=== PATIENT | male | born 1945 | race Caucasian/White ===

== ENCOUNTER 2023-01-03 13:27 | Observation (INO) ==
--- NOTE | 2023-01-03 13:38 | Emergency Department Note ---
History of Present Illness General Chief complaint: Illness Stated complaint: DIZZINESS,UNSTEADY,LEANING OVER,MEDEXP REF Time Seen by Provider: 01/03/23 13:37 History of Present Illness This 77-year-old male patient presents to the emergency department for evaluation of dizziness, chills, and shaking. He went to [facility] first, but they were unable to do a chest x-ray and he was referred to the emergency d [facility]. He started with chills and unsteadiness on his feet last night. Has also been coughing the past couple weeks and he is a smoker. His urine was also very dark and orange this morning and his girlfriend was concerned for UTI. [facility] was also concerned about possible pneumonia. No abdominal pain, nausea, or vomiting. No chest pain. Mild SOB at times. Used his inhaler this morning with minimal improvement. No measured fevers, but had the chills like he might have been breaking a fever. He states that he gets "cold spells" about once a year that usually just resolves on his own. No headache, vision changes, or changes in his personality. Just seems dizzy with getting up from sitting and trying to walk right away. Not on any blood thinners. Home Medications Medication Instructions Recorded Confirmed Type acetaminophen 650 mg 1,300 mg PO TID 06/15/20 01/03/23 History tablet,extended release aspirin 81 mg tablet,delayed 81 mg PO QAM 06/15/20 01/03/23 History release fenofibrate micronized 200 mg 200 mg PO QAM 06/15/20 01/03/23 History capsule simvastatin 40 mg tablet 40 mg PO HS 06/15/20 01/03/23 History melatonin 2.5 mg/10 mL oral liquid 5 mg PO HS PRN Sleep 10/13/20 01/03/23 History albuterol sulfate 90 mcg/actuation 2 puff inhalation Q6H PRN 04/28/22 01/03/23 History aerosol inhaler Shortness Of Breath Or Wheezing bupropion HCl 150 mg tablet,12 hr 150 mg PO BID 04/28/22 01/03/23 History sustained-release (Wellbutrin SR) esomeprazole magnesium 20 mg 40 mg PO DAILY 04/28/22 01/03/23 History capsule,delayed release (Nexium) fexofenadine 180 mg tablet 180 mg PO DAILY 04/28/22 01/03/23 History (Gissell Allergy) meloxicam 7.5 mg tablet 15 mg PO DAILY 04/28/22 01/03/23 History tamsulosin 0.4 mg capsule (Flomax) 0.4 mg PO DAILY 04/28/22 01/03/23 History ciclopirox 0.77 % topical cream 1 applic topical BID PRN Skin 09/13/22 01/03/23 History Irritation valsartan 160 mg tablet 160 mg PO DAILY 09/13/22 01/03/23 History montelukast 10 mg tablet 10 mg PO DAILY #30 tabs 10/16/22 01/03/23 Rx famotidine 20 mg tablet (Acid 20 mg PO HS 01/03/23 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/23 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)) metoprolol succinate 25 mg 25 mg PO QAM 01/03/23 01/03/23 History tablet,extended release 24 hr Allergies Allergy/AdvReac Type Severity Reaction Status Date / Time No Known Allergies Allergy Verified 01/03/23 15:21 Past Med/Surg History Medical History Abnormal CT scan, chest Allergic rhinitis Chronic back pain Hyperlipidemia Hypertension Osteoarthritis Tobacco abuse counseling Surgical History History of bilateral cataract extraction History of colonoscopy Family History Mother Hypertension Cancer Heart disease Sister Hypertension Cancer Heart disease Other No family history of adverse response to anesthesia Social History Smoking Status: Current every day smoker Tobacco Type: Cigarettes Age Started Using Tobacco: 18; packs per day: 1; Cigarettes Per Day: 20X 56 YEARS; Second Hand Exposure: Yes; Hx Alcohol Use: No Hx Substance Use: No Preferred Language: Urdu Communication Ability: Effective 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 Physical Exam Vital Signs Vital Signs - 24 hr 01/03/23 13:33 01/03/23 13:46 01/03/23 14:19 Temperature 36.9 C Temperature Source Temporal Artery Scan Pulse Rate 88 83 Pulse Rate [Apical] 81 Pulse Rate from SpO2 Sensor Pulse Rhythm [Apical] Regular Pulse Strength [Apical] Normal Respiratory Rate 18 18 Respiratory Effort / Characteristics Non-Labored Spontaneous Non-Labored Spontaneous Respiratory Depth Normal Normal Respiratory Pattern Regular Regular Blood Pressure 120/68 Blood Pressure [Right Arm] 105/54 L Blood Pressure Mean 85 Blood Pressure Mean [Right Arm] 71 Blood Pressure Position [Right Arm] Sitting Pulse Oximetry 96 98 Oxygen Delivery Method Room Air Room Air Sepsis Recent Fever Within 48 Hours No Sepsis New/Unexplained Change in Mental Status No Sepsis Action Taken by Nursing No Action Required 01/03/23 14:19 01/03/23 14:00 01/03/23 14:30 Temperature Temperature Source Pulse Rate 87 77 Pulse Rate [Apical] Pulse Rate from SpO2 Sensor 79 76 Pulse Rhythm [Apical] Pulse Strength [Apical] Respiratory Rate 16 21 Respiratory Effort / Characteristics Respiratory Depth Respiratory Pattern Blood Pressure 105/54 L 110/58 L Blood Pressure [Right Arm] Blood Pressure Mean 71 75 Blood Pressure Mean [Right Arm] Blood Pressure Position [Right Arm] Pulse Oximetry 98 94 96 Oxygen Delivery Method Room Air Sepsis Recent Fever Within 48 Hours Sepsis New/Unexplained Change in Mental Status Sepsis Action Taken by Nursing 01/03/23 14:40 01/03/23 14:50 01/03/23 15:16 Temperature Temperature Source Pulse Rate 79 Pulse Rate [Apical] Pulse Rate from SpO2 Sensor 86 82 Pulse Rhythm [Apical] Pulse Strength [Apical] Respiratory Rate 18 Respiratory Effort / Characteristics Respiratory Depth Respiratory Pattern Blood Pressure 120/66 Blood Pressure [Right Arm] Blood Pressure Mean 84 Blood Pressure Mean [Right Arm] Blood Pressure Position [Right Arm] Pulse Oximetry 97 96 95 Oxygen Delivery Method Sepsis Recent Fever Within 48 Hours Sepsis New/Unexplained Change in Mental Status Sepsis Action Taken by Nursing 01/03/23 15:30 01/03/23 15:37 01/03/23 15:50 Temperature Temperature Source Pulse Rate 78 82 Pulse Rate [Apical] Pulse Rate from SpO2 Sensor 81 Pulse Rhythm [Apical] Pulse Strength [Apical] Respiratory Rate 20 21 Respiratory Effort / Characteristics Respiratory Depth Respiratory Pattern Blood Pressure 122/58 L 109/58 L Blood Pressure [Right Arm] Blood Pressure Mean 79 75 Blood Pressure Mean [Right Arm] Blood Pressure Position [Right Arm] Pulse Oximetry 96 97 97 Oxygen Delivery Method Sepsis Recent Fever Within 48 Hours Sepsis New/Unexplained Change in Mental Status Sepsis Action Taken by Nursing 01/03/23 16:00 01/03/23 16:10 Temperature Temperature Source Pulse Rate 79 87 Pulse Rate [Apical] Pulse Rate from SpO2 Sensor 78 85 Pulse Rhythm [Apical] Pulse Strength [Apical] Respiratory Rate 20 16 Respiratory Effort / Characteristics Respiratory Depth Respiratory Pattern Blood Pressure 119/62 Blood Pressure [Right Arm] Blood Pressure Mean 81 Blood Pressure Mean [Right Arm] Blood Pressure Position [Right Arm] Pulse Oximetry 96 98 Oxygen Delivery Method Sepsis Recent Fever Within 48 Hours Sepsis New/Unexplained Change in Mental Status Sepsis Action Taken by Nursing Vital Signs: Vitals are noted on the nurse's note and reviewed by myself. GENERAL: 77 year old male, in no acute distress, non-diaphoretic, well-developed well-nourished. SKIN: Capillary reflex less than 2 seconds. HEAD: Normocephalic atraumatic. EARS: External auditory canals clear, tympanic membrane pearly lai without erythema or effusion. No tragus tenderness. No mastoid tenderness. EYES: Pupils equal round and reactive to light and accommodation. Conjunctivae without injection, sclerae without icterus. Extraocular movements intact. NOSE: Patent, turbinates inflamed with No discharge. No sinus tenderness. MOUTH: Mucous membranes moist. Airway patent, uvula midline. Tonsils are not enlarged and not erythematous without exudate. Pharynx No postnasal drip. No evidence for peritonsillar abscess. NECK: Supple without nuchal rigidity. No lymphadenopathy. HEART: Regular rate and rhythm without murmurs gallops or rubs. LUNGS: Clear to auscultation bilaterally with scattered wheezes, but no rales or rhonchi. No accessory muscle use or retractions. ABDOMEN: Positive bowel sounds x 4. Normal tympanic percussion. Soft, nontender, without masses or organomegaly. NEURO: Patient was alert and oriented to person place and time. Normal mental status exam. Cerebellar function intact. No focal neurological defects. Course Administered Medications Acetaminophen (Acetaminophen 325 Mg Tab) 650 mg PO Q4H PRN PRN Reason: pain/fever Stop: 02/02/23 17:55 Last Admin: 01/03/23 22:10 Dose: 650 mg Documented By: EW Albuterol (Albut/Ipratrop 3mg/0.5mg Neb 3 Ml Vial) 3 ml NEB QIDR DANDRE; Protocol Stop: 02/02/23 18:59 Last Admin: 01/03/23 19:37 Dose: 3 ml Documented By: CMF Bupropion HCl (Bupropion Sr 150 Mg Tabcr) 150 mg PO BID DANDRE Stop: 02/02/23 20:59 Last Admin: 01/03/23 20:13 Dose: 150 mg Documented By: EW Famotidine (Famotidine 20 Mg Tab) 20 mg PO HS DANDRE Stop: 02/02/23 20:59 Last Admin: 01/03/23 20:11 Dose: 20 mg Documented By: EW Guaifenesin (Guaifenesin 600 Mg Tabcr) 1,200 mg PO Q12 DANDRE Stop: 02/02/23 20:59 Last Admin: 01/03/23 20:13 Dose: 1,200 mg Documented By: EW Methylprednisolone 40 mg/ (Syringe) 0.64 mls @ 1.5 mls/min IV Q8H DANDRE Stop: 02/02/23 18:59 Last Admin: 01/03/23 18:41 Dose: 1.5 mls/min Documented By: CAW Melatonin (Melatonin 3 Mg Tab) 6 mg PO HS PRN PRN Reason: Sleep Stop: 02/02/23 17:55 Last Admin: 01/03/23 22:10 Dose: 6 mg Documented By: EW Metoprolol Succinate (Metoprolol Succ 25mg Ext Rel Tab) 25 mg PO HS [facility] Stop: 02/02/23 21:29 Last Admin: 01/03/23 22:11 Dose: 25 mg Documented By: EW Miscellaneous (Fenofibrate Micronized 200 Mg - Order Awaiting Action) 1 each N/A QS DANDRE Stop: 02/03/23 00:00 Last Admin: 01/03/23 20:14 Dose: Not Given Documented By: EW Simvastatin (Simvastatin 40 Mg Tab) 40 mg PO HS [facility] Stop: 02/02/23 20:59 Last Admin: 01/03/23 20:11 Dose: 40 mg Documented By: EW Discontinued Medications Albuterol (Albut/Ipratrop 3mg/0.5mg Neb 3 Ml Vial) 3 ml NEB NOW STA; Protocol Stop: 01/03/23 13:53 Last Admin: 01/03/23 14:18 Dose: 3 ml Documented By: ERINN Sodium Chloride (Nss 1000ml) 1,000 mls @ 999 mls/hr IV .Q1H1M DANDRE Stop: 01/03/23 15:00 Last Infusion: 01/03/23 15:34 Dose: 0 mls/hr Documented By: Admin: 01/03/23 14:15 Dose: 999 mls/hr Documented By: ERINN Sodium Chloride (Nss 1000ml) 1,000 mls @ 999 mls/hr IV .Q1H1M ONE Stop: 01/03/23 16:00 Last Infusion: 01/03/23 16:02 Dose: 0 mls/hr Documented By: Admin: 01/03/23 15:05 Dose: 999 mls/hr Documented By: ERINN Ceftriaxone Sodium (Rocephin) 2,000 mg in 70 mls @ 140 mls/hr IV NOW STA Stop: 01/03/23 15:31 Last Infusion: 01/03/23 16:02 Dose: 0 mls/hr Documented By: Admin: 01/03/23 15:34 Dose: 140 mls/hr Documented By: ERINN Azithromycin 500 mg/ Dextrose 255 mls @ 127.5 mls/hr IV NOW STA Stop: 01/03/23 17:01 Last Infusion: 01/03/23 18:33 Dose: 0 mls/hr Documented By: Admin: 01/03/23 16:04 Dose: 127.5 mls/hr Documented By: ERINN Medical Decision Making Differential Diagnosis Differential diagnosis includes benign positional vertigo, dehydration, pneumonia, UTI, COVID, RSV, influenza, MN, PE, hypovolemia, anemia, tumor, infection, hypoglycemia, electrolyte abnormalities, cardiac sources, intracerebral event, toxicologic, neurologic, as well as other pathologies. Laboratory Data Attestation: I reviewed the patient's lab results. 01/03/23 14:06 01/03/23 14:06 Lab Results 01/03/23 01/03/23 01/03/23 Range/Units 14:06 14:06 14:06 WBC 19.29 H (4.8-10.8) K/ul RBC 4.35 L (4.70-6.10) M/uL Hgb 13.8 L (14.0-18.0) g/dl Hct 39.3 L (42.0-52.0) % MCV 90.3 (80.0-100.0) fL MCH 31.7 (25.0-34.0) pg MCHC 35.1 (32.0-36.0) g/dL RDW Std Deviation 46.2 (36.4-46.3) fL RDW Coeff of Mary 14.0 (11.5-14.5) % Plt Count 207 (130-400) K/uL MPV 9.2 L (9.4-12.4) fL Immature Gran % (Auto) 0.4 % Neut % (Auto) 85.8 % Lymph % (Auto) 5.9 % [place] % (Auto) 7.3 % Eos % (Auto) 0.1 % Baso % (Auto) 0.5 % Neut # (Auto) 16.56 H (1.40-6.50) K/uL Lymph # (Auto) 1.14 L (1.2-3.4) K/uL [place]on # (Auto) 1.40 H (0.11-0.59) K/uL Eos # (Auto) 0.01 (0-0.50) K/uL Baso # (Auto) 0.10 (0-0.2) K/uL Immature Gran # (Auto) 0.08 (0.01-0.20) K/uL PT (9.0-12.0) Seconds INR (0.9-1.1) APTT (21.0-31.0) Seconds PTT Ratio Sodium 139 (136-145) mmol/L Potassium 4.4 (3.5-5.1) mmol/L Chloride 107 (98-107) mmol/L Carbon Dioxide 25 (21-32) mmol/L Anion Gap 7 (3-11) BUN 29 H (6-23) mg/dl Creatinine 1.10 (0.6-1.4) mg/dl Est Cr Clr Drug Dosing 63.1 ml/min Est GFR ( Amer) 75.7 ml/min Est GFR (Non-Af Amer) 65.3 ml/min BUN/Creatinine Ratio 26.4 H (10-20) Glucose 89 (70-99(Fasting)) mg/dl Lactate (0.4-2.0) mmol/L Calcium 9.1 (8.6-10.3) mg/dl Magnesium 1.8 (1.7-2.4) mg/dl Total Bilirubin 1.0 (0.2-1.0) mg/dl AST 16 (13-39) U/L ALT 13 (7-52) U/L Alkaline Phosphatase 42 (34-104) U/L Troponin I High Sens 5.8 (0-20) pg/ml Total Protein 6.8 (6.0-8.3) gm/dl Albumin 4.2 (3.4-5.0) gm/dl Globulin 2.6 (2.5-4.0) gm/dl Albumin/Globulin Ratio 1.6 (0.9-2) TSH 1.003 (0.300-4.500) uIu/ml Urine Color Urine Appearance (Clear) Urine pH (4.5-7.5) Ur Specific [place] (1.000-1.030) Urine Protein (Negative) Urine Glucose (UA) (Negative) Urine Ketones (Negative) Urine Blood (Negative) Urine Nitrite (Negative) Urine Bilirubin (Negative) Urine Urobilinogen (Negative) Ur Leukocyte Esterase (Negative) Urine WBC (Auto) (0-5) /hpf Urine RBC (Auto) (0-4) /hpf U Hyaline Cast (Auto) (0-5) /lpf U Epithel Cells (Auto) (0-5) /lpf Urine Bacteria (Auto) (Negative) SARS-CoV-2 (PCR) (Negative) Influenza Type A (PCR) (Neg) Influenza Type B (PCR) (Neg) RSV (RT-PCR) (Neg) 01/03/23 01/03/23 01/03/23 Range/Units 14:06 14:06 14:51 WBC (4.8-10.8) K/ul RBC (4.70-6.10) M/uL Hgb (14.0-18.0) g/dl Hct (42.0-52.0) % MCV (80.0-100.0) fL MCH (25.0-34.0) pg MCHC (32.0-36.0) g/dL RDW Std Deviation (36.4-46.3) fL RDW Coeff of Mary (11.5-14.5) % Plt Count (130-400) K/uL MPV (9.4-12.4) fL Immature Gran % (Auto) % Neut % (Auto) % Lymph % (Auto) % Weston % (Auto) % Eos % (Auto) % Baso % (Auto) % Neut # (Auto) (1.40-6.50) K/uL Lymph # (Auto) (1.2-3.4) K/uL [place]on # (Auto) (0.11-0.59) K/uL Eos # (Auto) (0-0.50) K/uL Baso # (Auto) (0-0.2) K/uL Immature Gran # (Auto) (0.01-0.20) K/uL PT 11.1 (9.0-12.0) Seconds INR 1.0 (0.9-1.1) APTT 25.2 (21.0-31.0) Seconds PTT Ratio 0.9 Sodium (136-145) mmol/L Potassium (3.5-5.1) mmol/L Chloride (98-107) mmol/L Carbon Dioxide (21-32) mmol/L Anion Gap (3-11) BUN (6-23) mg/dl Creatinine (0.6-1.4) mg/dl Est Cr Clr Drug Dosing ml/min Est GFR ( Amer) ml/min Est GFR (Non-Af Amer) ml/min BUN/Creatinine Ratio (10-20) Glucose (70-99(Fasting)) mg/dl Lactate (0.4-2.0) mmol/L Calcium (8.6-10.3) mg/dl Magnesium (1.7-2.4) mg/dl Total Bilirubin (0.2-1.0) mg/dl AST (13-39) U/L ALT (7-52) U/L Alkaline Phosphatase (34-104) U/L Troponin I High Sens (0-20) pg/ml Total Protein (6.0-8.3) gm/dl Albumin (3.4-5.0) gm/dl Globulin (2.5-4.0) gm/dl Albumin/Globulin Ratio (0.9-2) TSH (0.300-4.500) uIu/ml Urine Color [place] Urine Appearance Clear (Clear) Urine pH 6.0 (4.5-7.5) Ur Specific Ballinger 1.030 (1.000-1.030) Urine Protein Negative (Negative) Urine Glucose (UA) Negative (Negative) Urine Ketones Trace H (Negative) Urine Blood Negative (Negative) Urine Nitrite Negative (Negative) Urine Bilirubin Negative (Negative) Urine Urobilinogen Negative (Negative) Ur Leukocyte Esterase Trace H (Negative) Urine WBC (Auto) 1-5 (0-5) /hpf Urine RBC (Auto) 0-4 (0-4) /hpf U Hyaline Cast (Auto) 5-10 H (0-5) /lpf U Epithel Cells (Auto) 10-20 H (0-5) /lpf Urine Bacteria (Auto) Negative (Negative) SARS-CoV-2 (PCR) NEGATIVE (Negative) Influenza Type A (PCR) Negative (Neg) Influenza Type B (PCR) Negative (Neg) RSV (RT-PCR) Negative (Neg) 01/03/23 Range/Units 15:14 WBC (4.8-10.8) K/ul RBC (4.70-6.10) M/uL Hgb (14.0-18.0) g/dl Hct (42.0-52.0) % MCV (80.0-100.0) fL MCH (25.0-34.0) pg MCHC (32.0-36.0) g/dL RDW Std Deviation (36.4-46.3) fL RDW Coeff of Mary (11.5-14.5) % Plt Count (130-400) K/uL MPV (9.4-12.4) fL Immature Gran % (Auto) % Neut % (Auto) % Lymph % (Auto) % Weston % (Auto) % Eos % (Auto) % Baso % (Auto) % Neut # (Auto) (1.40-6.50) K/uL Lymph # (Auto) (1.2-3.4) K/uL [place]on # (Auto) (0.11-0.59) K/uL Eos # (Auto) (0-0.50) K/uL Baso # (Auto) (0-0.2) K/uL Immature Gran # (Auto) (0.01-0.20) K/uL PT (9.0-12.0) Seconds INR (0.9-1.1) APTT (21.0-31.0) Seconds PTT Ratio Sodium (136-145) mmol/L Potassium (3.5-5.1) mmol/L Chloride (98-107) mmol/L Carbon Dioxide (21-32) mmol/L Anion Gap (3-11) BUN (6-23) mg/dl Creatinine (0.6-1.4) mg/dl Est Cr Clr Drug Dosing ml/min Est GFR ( Amer) ml/min Est GFR (Non-Af Amer) ml/min BUN/Creatinine Ratio (10-20) Glucose (70-99(Fasting)) mg/dl Lactate 1.5 (0.4-2.0) mmol/L Calcium (8.6-10.3) mg/dl Magnesium (1.7-2.4) mg/dl Total Bilirubin (0.2-1.0) mg/dl AST (13-39) U/L ALT (7-52) U/L Alkaline Phosphatase (34-104) U/L Troponin I High Sens (0-20) pg/ml Total Protein (6.0-8.3) gm/dl Albumin (3.4-5.0) gm/dl Globulin (2.5-4.0) gm/dl Albumin/Globulin Ratio (0.9-2) TSH (0.300-4.500) uIu/ml Urine Color Urine Appearance (Clear) Urine pH (4.5-7.5) Ur Specific Ballinger (1.000-1.030) Urine Protein (Negative) Urine Glucose (UA) (Negative) Urine Ketones (Negative) Urine Blood (Negative) Urine Nitrite (Negative) Urine Bilirubin (Negative) Urine Urobilinogen (Negative) Ur Leukocyte Esterase (Negative) Urine WBC (Auto) (0-5) /hpf Urine RBC (Auto) (0-4) /hpf U Hyaline Cast (Auto) (0-5) /lpf U Epithel Cells (Auto) (0-5) /lpf Urine Bacteria (Auto) (Negative) SARS-CoV-2 (PCR) (Negative) Influenza Type A (PCR) (Neg) Influenza Type B (PCR) (Neg) RSV (RT-PCR) (Neg) Imaging Data Radiologist's Impression: Chest X-Ray 01/03/23 13:53 SINGLE VIEW CHEST CLINICAL HISTORY: Dyspnea. Dizziness. FINDINGS: An AP, portable, upright chest radiograph is compared to study dated 05/28/2018 and correlated with chest CT dated 03/29/2022. The heart is enlarged not ing atherosclerotic calcification of the thoracic aorta. The pulmonary vasculature is noncongested. Emphysema and chronic interstitial thickening is similar to previous. There is multifocal airspace consolidation throughout the right lung. Airspace consolidation is also seen at the left lung base. No large pleural effusion or pneumothorax is identified. The skeletal structures are osteopenic. The bony thorax is grossly intact. IMPRESSION: 1. Multifocal airspace consolidation is typical for pneumonia. Clinical correlation will be required and radiographic follow-up to resolution is recommended. 2. Cardiomegaly and mild emphysema. 3. No large pleural effusion is seen. ACT 112: Negative or not required by law. Electronically signed by: Jd Maciel M.D. 01/03/2023 2:51 PM MDM Narrative I examined the patient. An IV lock was placed and labs were drawn. The patient was given a total of 2 L normal saline solution bolus. He was given a DuoNeb treatment with improvement initially, but then had slight return of wheezing prior to admission. Blood cultures were drawn and are pending. EKG was interpreted by myself as normal sinus rhythm at 84 bpm with no acute ST or T wave changes. White blood cell count elevated at 19.29. Hemoglobin slightly low at 13.8. Coags were normal. BUN elevated at 29, but creatinine normal at 1.10. CMP otherwise normal. Lactate normal at 1.5. Troponin normal. Magnesium normal. TSH normal. Urine with trace ketones, but no obvious evidence for UTI. COVID, flu, and RSV were negative. Chest x-ray was interpreted by myself and read by radiology as above and shows multifocal airspace consolidation typical for pneumonia. Cardiomegaly and mild emphysema. He was given Rocephin 2 g IV and Zithromax 500 mg IV. Based on Curb-65 score the patient meets criteria for admission. I had a meaningful discussion about this patient with Dr. Choudhury who agrees with my assessment and the treatment plan. I discussed the case with the on-call hospitalist who agreed to admit the patient for further evaluation and treatment. Please refer to their dictation for further details. The patient was admitted in stable condition. Impression & Plan Multifocal pneumonia, COPD (chronic obstructive pulmonary disease), Leukocytosis Discharge Plan Visit Data Chief Complaint: Illness Stated Complaint: DIZZINESS,UNSTEADY,LEANING OVER,MEDEXP REF ED Provider: Erlin Choudhury ED Midlevel Provider: Aaliyah Ardon Discharge Problem: Multifocal pneumonia, COPD (chronic obstructive pulmonary disease), Leukocytosis Patient Disposition: Admitted As Inpatient Condition: Good Discharge Instructions Interventions: ED Discharge Assessment Last Done: 01/03/23 17:32
[2023-01-03] MEDS ORDERED: ALBUT/IPRATROP 3MG/0.5MG NEB 3 ML VIAL NEB STA (13:52)
[2023-01-03] MEDS ORDERED: SODIUM CHLORIDE 0.9% 1000ML 1,000 ML IV SCH (14:00)
--- NOTE | 2023-01-03 14:52 | XRay Report ---
SINGLE VIEW CHEST CLINICAL HISTORY: Dyspnea. Dizziness. FINDINGS: An AP, portable, upright chest radiograph is compared to study dated 05/28/2018 and correlate d with chest CT dated 03/29/2022. The heart is enlarged noting atherosclerotic calcification of the tho racic aorta. The pulmonary vasculature is noncongested. Emphysema and chronic interstitial thickening is similar to previous. There is multifocal airspace consolidation throughout the right lung. Airspa ce consolidation is also seen at the left lung base. No large pleural effusion or pneumothorax is destin ntified. The skeletal structures are osteopenic. The bony thorax is grossly intact. IMPRESSION: 1. Multifocal airspace consolidation is typical for pneumonia. Clinical correlation will be required and radiographic follow-up to resolution is recommended. 2. Cardiomegaly and mild emphysema. 3. No large pleural effusion is seen. ACT 112: Negative or not required by law. Electronically signed by: Jd Maciel M.D. 01/03/2023 2:51 PM
[2023-01-03 14:55] LABS: Basophils % (auto) 0.5 %; Eosinophils # (auto) 0.01 K/uL (0-0.50); Eosinophils % (auto) 0.1 %; Hematocrit (blood only) 39.3 % (42.0-52.0); Hemoglobin 13.8 g/dl (14.0-18.0); Immature Granulocytes # (auto) 0.08 K/uL (0.01-0.20); Immature Granulocytes % (auto) 0.4 %; Lymphocytes # (auto) 1.14 K/uL (1.2-3.4); Lymphocytes % (auto) 5.9 %; Mean Corpuscular Hemoglobin 31.7 pg (25.0-34.0); Mean Corpuscular Hgb Conc 35.1 g/dL (32.0-36.0); Mean Corpuscular Volume 90.3 fL (80.0-100.0); Mean Platelet Volume 9.2 fL (9.4-12.4); Monocytes % (auto) 7.3 %; Neutrophils # (auto) 16.56 K/uL (1.40-6.50); Neutrophils % (auto) 85.8 %; Platelet Count 207 K/uL (130-400); RDW Standard Deviation 46.2 fL (36.4-46.3); Red Blood Count 4.35 M/uL (4.70-6.10); White Blood Count 19.29 K/ul (4.8-10.8)
[2023-01-03] MEDS ORDERED: SODIUM CHLORIDE 0.9% 1000ML 1,000 ML IV ONE (15:00)
[2023-01-03] MEDS ORDERED: AZITHROMYCIN 500 MG in DEXTROSE 5% 250 ML IV STA (15:02)
[2023-01-03] MEDS ORDERED: cefTRIAXone SODIUM 2,000 MG/70 ML BAG IV STA (15:02)
[2023-01-03 15:06] LABS: Albumin Globulin Ratio 1.6 (0.9-2); Albumin Level 4.2 gm/dl (3.4-5.0); BUN Creatinine Ratio 26.4 (10-20); Calcium 9.1 mg/dl (8.6-10.3); Creatinine Clr Calc Pharmacy 63.1 ml/min; Est GFR (African American) 75.7 ml/min; Est GFR (Non-African American) 65.3 ml/min; Globulin 2.6 gm/dl (2.5-4.0); Magnesium 1.8 mg/dl (1.7-2.4); Potassium 4.4 mmol/L (3.5-5.1); Total Protein 6.8 gm/dl (6.0-8.3)
[2023-01-03 15:11] LABS: Troponin I High Sensitivity 5.8 pg/ml (0-20)
[2023-01-03 15:20] LABS: Partial Thromboplastin Ratio 0.9; Partial Thromboplastin Time 25.2 Seconds (21.0-31.0); Prothrombin Time 11.1 Seconds (9.0-12.0)
[2023-01-03 15:25] LABS: Appearance Urine Clear (Clear); Bacteria Urine Automated Negative (Negative); Bilirubin Urine Negative (Negative); Blood Urine Negative (Negative); Color Urine Orange; Glucose Urine UA Negative (Negative); Ketones Urine Trace (Negative); Leukocyte Esterase Urine Trace (Negative); Nitrite Urine Negative (Negative); Protein Urine Negative (Negative); RBC Urine Automated 0-4 /hpf (0-4); Urobilinogen Urine Negative (Negative)
[2023-01-03 15:36] LABS: Influenza A virus by PCR Negative (Neg); Influenza B virus by PCR Negative (Neg); RSV by PCR Negative (Neg); SARS CoV2 RNA(COVID-19) Ceph NEGATIVE (Negative)
--- NOTE | 2023-01-03 16:26 | History & Physical Report ---
Date of Service January 03, 2023 Assessment & Plan (1) Multifocal pneumonia: Plan: Acute/unstable - Admit to med/surg unit - Heart healthy diet - OOB ad valarie - Implement supplemental O2 only if sat <88%, goal pulse ox 88-92% - Initiate Levaquin 750mg IV daily, first dose 4/13 AM (does not have a prolonged QTc) - Duonebs QID and q2 prn - Solumedrol 40mg IV q8 - Mucinex 1200mg BID - Sputum culture and gram stain (2) Leukocytosis: Plan: Acute/unstable - Reviewed CBC w/ diff, WBC 19.29 - Blood cultures x 2 collected, pending - Treat with antibiotics as outlined above - Repeat CBC w/ diff in AM (3) COPD (chronic obstructive pulmonary disease): Plan: Acute on chronic/unstable - Suspect mild AECOPD - Treat with nebs/mucinex/abx (4) LPRD (laryngopharyngeal reflux disease): Plan: Chronic/stable - Continue Famotidine and PPI (5) Hypertension: Plan: Chronic/stable - Continue Valsartan (6) CAD (coronary artery disease), [place] coronary artery: Plan: Chronic/stable - Continue ASA, Zocor, and Toprol XL Plan Lovenox will be utilized for DVT ppx. Above plan of care has been d/w Dr. Wood who has also seen and evaluated this patient. Further orders will be implemented as warranted. History of Present Illness Chief Complaint: shortness of breath Primary Care Provider: Linda Mena is a 77 yo M with a h/o tobacco-induced ILD/COPD as well as HTN, hypertriglyceridemia, nonobstructive CAD, GERD, moderate ERNIE with CPAP intolerance and BPH who presented to the ER today c/o dyspnea and wheezing. Patient reports feeling generally unwell for the past couple of weeks but had increasing wheezing and shortness of breath with cold chills over the last day. He was seen today at [facility] and was told that he had "a lot of wheezing" and was encouraged to go to the ER for evaluation. Patient is currently not on oxygen, does continue to smoke, and uses an albuterol inhaler as needed. He does not use any inhaled corticosteroids and has not been treated with steroids or antibiotics prior to his arrival today. In the ER, his work up revealed leukocytosis with left shift and radiologic evidence of multifocal pneumonia. He is not currently hypoxic. He was treated with a dose of Zithromax and Rocephin and given a Duoneb and has been referred for admission to the hospitalist service. Allergies Allergy/AdvReac Type Severity Reaction Status Date / Time No Known Allergies Allergy Verified 01/03/23 15:21 Home Medications Medication Instructions Recorded Confirmed Type acetaminophen 650 mg 1,300 mg PO TID 06/15/20 01/03/23 History tablet,extended release aspirin 81 mg tablet,delayed 81 mg PO QAM 06/15/20 01/03/23 History release fenofibrate micronized 200 mg 200 mg PO QAM 06/15/20 01/03/23 History capsule simvastatin 40 mg tablet 40 mg PO HS 06/15/20 01/03/23 History melatonin 2.5 mg/10 mL oral liquid 5 mg PO HS PRN Sleep 10/13/20 01/03/23 History albuterol sulfate 90 mcg/actuation 2 puff inhalation Q6H PRN 04/28/22 01/03/23 History aerosol inhaler Shortness Of Breath Or Wheezing bupropion HCl 150 mg tablet,12 hr 150 mg PO BID 04/28/22 01/03/23 History sustained-release (Wellbutrin SR) esomeprazole magnesium 20 mg 40 mg PO DAILY 04/28/22 01/03/23 History capsule,delayed release (Nexium) fexofenadine 180 mg tablet 180 mg PO DAILY 04/28/22 01/03/23 History (Gissell Allergy) meloxicam 7.5 mg tablet 15 mg PO DAILY 04/28/22 01/03/23 History tamsulosin 0.4 mg capsule (Flomax) 0.4 mg PO DAILY 04/28/22 01/03/23 History ciclopirox 0.77 % topical cream 1 applic topical BID PRN Skin 09/13/22 01/03/23 History Irritation valsartan 160 mg tablet 160 mg PO DAILY 09/13/22 01/03/23 History montelukast 10 mg tablet 10 mg PO DAILY #30 tabs 10/16/22 01/03/23 Rx famotidine 20 mg tablet (Acid 20 mg PO HS 01/03/23 01/03/23 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)) metoprolol succinate 25 mg 25 mg PO QAM 01/03/23 01/03/23 History tablet,extended release 24 hr Past Med/Surg History Medical History Abnormal CT scan, chest Allergic rhinitis Chronic back pain Hyperlipidemia Hypertension Osteoarthritis Tobacco abuse counseling Surgical History History of bilateral cataract extraction History of colonoscopy Family History Mother Hypertension Cancer Heart disease Sister Hypertension Cancer Heart disease Other No family history of adverse response to anesthesia Social History Smoking Status: Current every day smoker Tobacco Type: Cigarettes Age Started Using Tobacco: 18; packs per day: 1; Cigarettes Per Day: 20X 56 YEARS; Second Hand Exposure: Yes (parents smoked); Hx Alcohol Use: Yes Alcohol type: wine Hx Substance Use: No Preferred Language: Moldovan Communication Ability: Effective House Mover Helper Required: No Beliefs That Will Affect Care: None Current Living Situation: Family Current Living Situation Comment: Lives with daughter and daughter's family Feels Safe at Home: Yes Assistive Devices: Glasses Physical Exam Physical Exam: GENERAL: 77 yo well-developed, well-nourished WM. NAD. LUNGS: Mild conversational dyspnea. Diffuse expiratory wheezing throughout. CARDIOVASCULAR: Regular rate and rhythm. No M/G/R. No JVD. ABDOMEN: Soft, non-tender and non-distended. No palpable masses. Bowel sounds normoactive x 4 quad. EXTREMITIES: No edema. Non-tender. Peripheral pulses +2/4. Results & Data Results & Data Vital Signs (Past 12 Hours) Vital Signs Temp Pulse Pulse Resp BP BP Pulse Ox 01/03/23 14:19 98 01/03/23 14:19 81 18 105/54 L 98 01/03/23 13:46 83 01/03/23 13:33 36.9 C 88 18 120/68 96 O2 Del Method 01/03/23 14:19 Room Air 01/03/23 14:19 Room Air 01/03/23 13:46 01/03/23 13:33 Room Air Laboratory Results 01/03/23 14:06 01/03/23 14:06 Diagnostic Findings Chest X-Ray 01/03/23 13:53 SINGLE VIEW CHEST CLINICAL HISTORY: Dyspnea. Dizziness. FINDINGS: An AP, portable, upright chest radiograph is compared to study dated 05/28/2018 and correlated with chest CT dated 03/29/2022. The heart is enlarged noting atherosclerotic calcification of the thoracic aorta. The pulmonary vasculature is noncongested. Emphysema and chronic interstitial thickening is similar to previous. There is multifocal airspace consolidation throughout the r ight lung. Airspace consolidation is also seen at the left lung base. No large pleural effusion or pneumothorax is identified. The skeletal structures are osteopenic. The bony thorax is grossly intact. IMPRESSION: 1. Multifocal airspace consolidation is typical for pneumonia. Clinical correlation will be required and radiographic follow-up to resolution is recommended. 2. Cardiomegaly and mild emphysema. 3. No large pleural effusion is seen. ACT 112: Negative or not required by law. Electronically signed by: Jd Maciel M.D. 01/03/2023 2:51 PM Supervising Physician Co-Signing Physician Notes Patient seen and examined, chart reviewed, case discussed with Chrissie Elizalde PA-C and I agree with the assessment and plan as above except as otherwise noted Labs and images reviewed Patient seen at the bedside. He reports that he continues to have a significant cough with exertional dyspnea, feels somewhat improved at rest. No chest pain or chest pressure. Has had feelings of intermittent chilliness, all over no shaking chills/rigors. Lungs are with scattered diffuse wheezing. Does continue to use tobacco products, cessation counseling given. Patient declines patch/gum. Heart rate is regular. Patient appears chronically ill but nontoxic, curb 65 with high risk. Agree with TX IV Levaquin, steroids every 8 hours and taper as able. Agree with assessment and plan above. PG Care Time/CCT Total # of Minutes Spent Total Time Spent with Patient: Total time spent is greater than 50% in coordination of care (as documented) at patient's floor/unit and/or counseling patient: Coding Level of Care Code 27132 INT INP/OBS CARE 3/75MIN Diagnoses Multifocal pneumonia J18.9 Leukocytosis D72.829 COPD (chronic obstructive pulmonary disease) J44.9 LPRD (laryngopharyngeal reflux disease) K21.9 Hypertension I10 CAD (coronary artery disease), [place] coronary artery I25.10
[2023-01-03] MEDS ORDERED: ACETAMINOPHEN 325 MG TAB PO PRN (17:56)
[2023-01-03] MEDS ORDERED: MELATONIN 3 MG TAB PO PRN (17:56)
[2023-01-03] MEDS ORDERED: ONDANSETRON INJ 2 MG/ML 2 ML VIAL IV PRN (17:56)
[2023-01-03] MEDS ORDERED: ALUMINUM/MAGNESIUM SUSP 30 ML UDC PO PRN (17:56)
[2023-01-03] MEDS ORDERED: MAGNESIUM HYDROXIDE SUSP 30 ML UDC PO PRN (17:56)
[2023-01-03] MEDS ORDERED: POLYETHYLENE (MIRALAX) 17 GM PACK PO PRN (17:56)
[2023-01-03] MEDS: methylPREDNISolone 40 MG in SYRINGE 0 ML IV SCH (18:41)
[2023-01-03] MEDS: ALBUT/IPRATROP 3MG/0.5MG NEB 3 ML VIAL NEB SCH (19:37)
[2023-01-03] MEDS: buPROPion SR 150 MG TABCR PO SCH (20:13)
[2023-01-03] MEDS: guaiFENesin 600 MG TABCR PO SCH (20:13)
[2023-01-03] MEDS ORDERED: SIMVASTATIN 40 MG TAB PO SCH (21:00)
[2023-01-03] MEDS ORDERED: FAMOTIDINE 20 MG TAB PO SCH (21:00)
[2023-01-03] MEDS ORDERED: METOPROLOL SUCC 25MG EXT REL TAB PO SCH (21:30)
[2023-01-04] MEDS: methylPREDNISolone 40 MG in SYRINGE 0 ML IV SCH ×2 (02:49→10:23)
[2023-01-04 06:41] LABS: Basophils # (auto) 0.03 K/uL (0-0.2); Basophils % (auto) 0.2 %; Eosinophils # (auto) 0.01 K/uL (0-0.50); Eosinophils % (auto) 0.1 %; Hematocrit (blood only) 37.7 % (42.0-52.0); Immature Granulocytes # (auto) 0.32 K/uL (0.01-0.20); Immature Granulocytes % (auto) 1.7 %; Lymphocytes # (auto) 1.18 K/uL (1.2-3.4); Lymphocytes % (auto) 6.4 %; Mean Corpuscular Hemoglobin 31.6 pg (25.0-34.0); Mean Corpuscular Hgb Conc 34.5 g/dL (32.0-36.0); Mean Corpuscular Volume 91.7 fL (80.0-100.0); Mean Platelet Volume 9.3 fL (9.4-12.4); Monocytes # (auto) 0.52 K/uL (0.11-0.59); Monocytes % (auto) 2.8 %; Neutrophils # (auto) 16.34 K/uL (1.40-6.50); Neutrophils % (auto) 88.8 %; Platelet Count 210 K/uL (130-400); RDW Coefficient of Variation 14.2 % (11.5-14.5); RDW Standard Deviation 47.9 fL (36.4-46.3); Red Blood Count 4.11 M/uL (4.70-6.10)
[2023-01-04 06:59] LABS: BUN Creatinine Ratio 22.8 (10-20); Calcium 8.8 mg/dl (8.6-10.3); Creatinine Clr Calc Pharmacy 68.7 ml/min; Est GFR (African American) 83.9 ml/min; Est GFR (Non-African American) 72.4 ml/min; Magnesium 2.2 mg/dl (1.7-2.4); Potassium 3.8 mmol/L (3.5-5.1)
[2023-01-04] MEDS: ALBUT/IPRATROP 3MG/0.5MG NEB 3 ML VIAL NEB SCH ×2 (07:17→10:30)
[2023-01-04] MEDS: buPROPion SR 150 MG TABCR PO SCH (08:37)
[2023-01-04] MEDS: guaiFENesin 600 MG TABCR PO SCH (08:37)
[2023-01-04] MEDS ORDERED: ENOXAPARIN INJ 40 MG/0.4 ML SYR SQ SCH (09:00)
[2023-01-04] MEDS ORDERED: VALSARTAN 80 MG TAB PO SCH (09:00)
[2023-01-04] MEDS ORDERED: METOPROLOL SUCC 25MG EXT REL TAB PO SCH (09:00)
[2023-01-04] MEDS ORDERED: TAMSULOSIN HCL 0.4 MG CAP PO SCH (09:00)
[2023-01-04] MEDS ORDERED: ASPIRIN 81 MG ECTAB PO SCH (09:00)
[2023-01-04] MEDS ORDERED: MONTELUKAST SODIUM 10 MG TABLET PO SCH (09:00)
[2023-01-04] MEDS ORDERED: levoFLOXacin/D5W 750 MG/150 ML BAG IV SCH (09:00)
[2023-01-04] MEDS ORDERED: PANTOprazole 40 MG TAB PO SCH (09:00)
[2023-01-04] MEDS ORDERED: MELOXICAM 7.5 MG TAB PO SCH (09:00)
--- NOTE | 2023-01-04 14:45 | Discharge Summary ---
Date of Service January 04, 2023 Admission HPI Per Admitting Provider Alon Mena is a 77 yo M with a h/o tobacco-induced ILD/COPD as well as HTN, hypertriglyceridemia, nonobstructive CAD, GERD, moderate ERNIE with CPAP intolerance and BPH who presented to the ER today c/o dyspnea and wheezing. Patient reports feeling generally unwell for the past couple of weeks but had increasing wheezing and shortness of breath with cold chills over the last day. He was seen today at [facility] and was told that he had "a lot of wheezing" and was encouraged to go to the ER for evaluation. Patient is currently not on oxygen, does continue to smoke, and uses an albuterol inhaler as needed. He does not use any inhaled corticosteroids and has not been treated with steroids or antibiotics prior to his arrival today. In the ER, his work up revealed leukocytosis with left shift and radiologic evidence of multifocal pneumonia. He is not currently hypoxic. He was treated with a dose of Zithromax and Rocephin and given a Duoneb and has been referred for admission to the hospitalist service. Principal Diagnosis Right lower lobe multifocal pneumonia Discharge Exam Patient is awake and alert no distress He is not requiring supplemental oxygen His pulmonary mechanics are stable his lungs did have some rales at the bases worse on the right Incentive spirometer use was reinforced Discharge Data Allergies Allergy/AdvReac Type Severity Reaction Status Date / Time No Known Allergies Allergy Verified 01/03/23 15:21 Consultations 01/03/23 15:49 ED Decision to Admit Stat Ordered Studies Chest X-Ray 01/03/23 13:53 SINGLE VIEW CHEST CLINICAL HISTORY: Dyspnea. Dizziness. FINDINGS: An AP, portable, upright chest radiograph is compared to study dated and correlated with chest CT dated 03/29/2022. The heart is enlarged noting atherosclerotic calcification of the thoracic aorta. The pulmonary vasculature is noncongested. Emphysema and chronic interstitial thickening is similar to previous. There is multifocal airspace consolidation throughout the right lung. Airspace consolidation is also seen at the left lung base. No large pleural effusion or pneumothorax is identified. The skeletal structures are osteopenic. The bony thorax is grossly intact. IMPRESSION: 1. Multifocal airspace consolidation is typical for pneumonia. Clinical cor relation will be required and radiographic follow-up to resolution is recommended. 2. Cardiomegaly and mild emphysema. 3. No large pleural effusion is seen. ACT 112: Negative or not required by law. Electronically signed by: Jd Maciel M.D. 01/03/2023 2:51 PM Hospital Course (1) Multifocal pneumonia: Acute, patient be discharged on levofloxacin daily not be on any additional steroid states he has had dramatic and proved recovery. He is given refill for albuterol inhaler Recommended he will follow-up with his family physician and have a follow-up chest x-ray in about a month (2) Leukocytosis: Acute resolved (3) COPD (chronic obstructive pulmonary disease): Acute on chronic/certainly pneumonia has worsened this chronic problem will recommend follow-up -No steroids were given at time of discharge (4) LPRD (laryngopharyngeal reflux disease): Chronic/stable - Continue Famotidine and PPI (5) Hypertension: Chronic/stable - Continue Valsartan (6) CAD (coronary artery disease), [place] coronary artery: Chronic/stable - Continue ASA, Zocor, and Toprol XL Total Time Total Time Spent Total Time Spent (In Minutes): It required greater than 30 minutes to prepare this patient for discharge Discharge Plan Discharge Items Patient Disposition: Home - Self-Care Reason For Visit: MULTIFOCAL PNUEMONIA Discharge Diagnosis: right lower lobe pneumonia copd Condition on Discharge: Good Activity: Per Instructions section Activity Comment: slowly increase activity Non-emergency contact: Primary Care Provider Call non-emergency contact if: your symptoms worsen Follow-up/Referrals: Linda Stock [Primary Care Provider] - 01/12/23 10:25 am Addtl Attending Provider Instructions: please rest and recover please use incentive spirometer or take 10 deep breaths 3-4 times a day follow up with your primary care next week, discuss getting follow up Chest x ray in a month Pending Studies at Discharge: Yes Studies:: blood cultures are being analysed Stand-Alone Forms: [employer], Smoking Cessation Medications and DC Order Prescriptions: New levofloxacin 750 mg tablet 750 mg PO DAILY 7 Days Qty: 7 0RF Continued montelukast 10 mg tablet 10 mg PO DAILY Qty: 30 2RF valsartan 160 mg tablet 160 mg PO DAILY ciclopirox 0.77 % cream 1 applic topical BID PRN (Reason: Skin Irritation) meloxicam 7.5 mg tablet 15 mg PO DAILY tamsulosin [Flomax] 0.4 mg capsule 0.4 mg PO DAILY esomeprazole magnesium [Nexium] 20 mg capsule,delayed release(DR/EC) 40 mg PO DAILY bupropion HCl [Wellbutrin SR] 150 mg tablet sustained-release 12 hr 150 mg PO BID fexofenadine [Gissell Allergy] 180 mg tablet 180 mg PO DAILY fenofibrate micronized 200 mg Capsule 200 mg PO QAM aspirin 81 mg Tablet,Delayed Release (Dr/Ec) 81 mg PO QAM simvastatin 40 mg Tablet 40 mg PO HS acetaminophen 650 mg Tablet Extended Release 1,300 mg PO TID melatonin 2.5 mg/10 mL Liquid 5 mg PO HS PRN (Reason: Sleep) Patient Comments: *per pt is a spray* Rx Instructions: PER PT "USUALLY EVERY NIGHT". metoprolol succinate 25 mg tablet extended release 24 hr 25 mg PO QAM famotidine [Acid Administrative Hearing Officer (famotidine)] 20 mg tablet 20 mg PO HS albuterol sulfate 90 mcg/actuation HFA aerosol inhaler 2 puff inhalation Q6H PRN (Reason: Shortness Of Breath Or Wheezing) Qty: 1 0RF Discharge Orders: Discharge Order (Routine); Ordered 01/04/23 Ordered By: Zelalem Tirado Admission Data Admit Date/Time: 01/03/23 16:23 Attending Provider: Zelalem Tirado Admit Provider: Teja Wood Primary Care Provider: Linda Stock Other Providers: Teja Wood ; Zelalem Tirado Other Interventions: Discharge Summary Assessment (RN) Last Done: 01/04/23 11:40 Coding Level of Care Code 02841 INP/OBS DISCH >30 MIN Diagnoses Multifocal pneumonia J18.9 Leukocytosis D72.829 Leukocytosis type: unspecified COPD (chronic obstructive pulmonary disease) J44.9 COPD type: unspecified COPD LPRD (laryngopharyngeal reflux disease) K21.9 Hypertension I10 CAD (coronary artery disease), [place] coronary artery I25.10
--- NOTE | 2023-01-05 05:54 | Electrocardiogram Report ---
Test Reason : Blood Pressure : / mmHG Vent. Rate : 084 BPM Atrial Rate : 084 BPM P-R Int : 162 ms QRS Dur : 080 ms QT Int : 366 ms P-R-T Axes : 062 000 044 degrees QTc Int : 432 ms Normal sinus rhythm Cannot rule out Inferior infarct , age undetermined Abnormal ECG No previous ECGs available Confirmed by Vega Ashley ([id number]) on 01/05/2023 5:54:44 AM Referred By: Confirmed By:Vega Ashley
== END 2023-01-04 11:57 | disposition home or self-care (01) ==
LOC: ED 13:27 → SUATTDRO 16:23 → INTOOBSV 16:23 → 3E 16:23

== ENCOUNTER 2023-04-28 09:37 | Observation (INO) ==
[2023-04-28] MEDS ORDERED: SODIUM CHLORIDE 0.9% 1000ML 1,000 ML IV ONE (10:17)
[2023-04-28 10:27] LABS: Basophils # (auto) 0.11 K/uL (0-0.2); Basophils % (auto) 0.8 %; Eosinophils # (auto) 0.16 K/uL (0-0.50); Eosinophils % (auto) 1.1 %; Hematocrit (blood only) 37.7 % (42.0-52.0); Hemoglobin 13.3 g/dl (14.0-18.0); Immature Granulocytes # (auto) 0.06 K/uL (0.01-0.20); Immature Granulocytes % (auto) 0.4 %; Lymphocytes # (auto) 1.18 K/uL (1.2-3.4); Lymphocytes % (auto) 8.4 %; Mean Corpuscular Hemoglobin 31.3 pg (25.0-34.0); Mean Corpuscular Hgb Conc 35.3 g/dL (32.0-36.0); Mean Corpuscular Volume 88.7 fL (80.0-100.0); Mean Platelet Volume 8.9 fL (9.4-12.4); Monocytes # (auto) 1.16 K/uL (0.11-0.59); Monocytes % (auto) 8.2 %; Neutrophils # (auto) 11.42 K/uL (1.40-6.50); Neutrophils % (auto) 81.1 %; Platelet Count 222 K/uL (130-400); RDW Coefficient of Variation 13.2 % (11.5-14.5); Red Blood Count 4.25 M/uL (4.70-6.10); White Blood Count 14.09 K/ul (4.8-10.8)
--- NOTE | 2023-04-28 10:27 | Emergency Department Note ---
History of Present Illness General Chief complaint: Illness Stated complaint: DIARRHEA, CHILLS, FEVER Time Seen by Provider: 04/28/23 10:04 History of Present Illness 77-year-old male presents emergency department with an onset of shaking chills and rigors that started last evening and was worse this morning. Patient reportedly had a temperature of 101 states watery diarrhea. Patient denies any recent illnesses recent sick contacts recent antibiotic use or travel. Patient denies specific abdominal pain no nausea no vomiting. Patient was concerned due to shaking chills and rigors. Patient has no urinary symptoms denies cough cold congestion. There were no other mitigating or alleviating factors Home Medications Medication Instructions Recorded Confirmed Type acetaminophen 650 mg 1,300 mg PO TID 06/15/20 04/28/23 History tablet,extended release aspirin 81 mg tablet,delayed 81 mg PO QAM 06/15/20 04/28/23 History release fenofibrate micronized 200 mg 200 mg PO QAM 06/15/20 04/28/23 History capsule simvastatin 40 mg tablet 40 mg PO HS 06/15/20 04/28/23 History melatonin 2.5 mg/10 mL oral liquid 5 mg PO HS PRN Sleep 10/13/20 04/28/23 History bupropion HCl 150 mg tablet,12 hr 150 mg PO BID 04/28/22 04/28/23 History sustained-release (Wellbutrin SR) esomeprazole magnesium 20 mg 40 mg PO DAILY 04/28/22 04/28/23 History capsule,delayed release (Nexium) fexofenadine 180 mg tablet 180 mg PO DAILY 04/28/22 04/28/23 History (Gissell Allergy) meloxicam 7.5 mg tablet 15 mg PO DAILY 04/28/22 04/28/23 History tamsulosin 0.4 mg capsule (Flomax) 0.4 mg PO DAILY 04/28/22 04/28/23 History ciclopirox 0.77 % topical cream 1 applic topical BID PRN Skin 09/13/22 04/28/23 History Irritation valsartan 160 mg tablet 160 mg PO DAILY 09/13/22 04/28/23 History metoprolol succinate 25 mg 25 mg PO QAM 01/03/23 04/28/23 History tablet,extended release 24 hr albuterol sulfate 90 mcg/actuation 2 puff inhalation Q6H PRN 01/04/23 04/28/23 Rx aerosol inhaler Shortness Of Breath Or Wheezing #1 inhaler famotidine 20 mg tablet (Acid 20 mg PO HS #30 tabs 02/20/23 04/28/23 Rx Dental Receptionist (famotidine)) montelukast 10 mg tablet 10 mg PO DAILY #30 tabs 04/13/23 04/28/23 Rx Allergies Allergy/AdvReac Type Severity Reaction Status Date / Time No Known Allergies Allergy Verified 02/21/23 10:25 Past Med/Surg History Medical History Abnormal CT scan, chest Allergic rhinitis Chronic back pain Hyperlipidemia Hypertension Osteoarthritis Tobacco abuse counseling Surgical History History of bilateral cataract extraction History of colonoscopy Family History Mother Hypertension Cancer Heart disease Sister Hypertension Cancer Heart disease Other No family history of adverse response to anesthesia Social History Smoking Status: Former smoker Tobacco Type: Cigarettes Age Started Using Tobacco: 18; packs per day: 1; Cigarettes Per Day: 20X 56 YEARS; Second Hand Exposure: Yes; Do You Dip or Chew Tobacco: No; Hx Alcohol Use: No Hx Substance Use: No Preferred Language: [place]ese Communication Ability: Effective Plumbing Installer Required: No Beliefs That Will Affect Care: None Current Living Situation: Alone Current Living Situation Comment: Lives with daughter and daughter's family Feels Safe at Home: Yes Assistive Devices: Glasses Review of Systems A total of 10 systems reviewed and were otherwise negative Cardiovascular: no chest pain Gastrointestinal: + diarrhea/loose stools; no abdominal pain Physical Exam Vital Signs Vital Signs - 24 hr 04/28/23 09:55 04/28/23 10:04 04/28/23 10:17 Temperature 37.3 C Temperature Source Temporal Artery Scan Pulse Rate 100 H Pulse Rate [Apical] 94 H Respiratory Rate 18 20 Respiratory Effort / Characteristics Non-Labored Non-Labored Respiratory Depth Normal Normal Respiratory Pattern Regular Blood Pressure 122/74 Blood Pressure [Right Arm] 130/78 Blood Pressure Mean 90 Blood Pressure Mean [Right Arm] 95 Pulse Oximetry 95 98 96 Oxygen Delivery Method Room Air Room Air Room Air Sepsis Recent Fever Within 48 Hours No Sepsis New/Unexplained Change in Mental Status N/A Sepsis Action Taken by Nursing No Action Required 04/28/23 10:24 04/28/23 10:46 Temperature Temperature Source Pulse Rate 96 H Pulse Rate [Apical] 89 Respiratory Rate 20 Respiratory Effort / Characteristics Respiratory Depth Respiratory Pattern Blood Pressure Blood Pressure [Right Arm] 121/71 Blood Pressure Mean Blood Pressure Mean [Right Arm] 87 Pulse Oximetry 96 Oxygen Delivery Method Room Air Sepsis Recent Fever Within 48 Hours Sepsis New/Unexplained Change in Mental Status Sepsis Action Taken by Nursing GENERAL: Patient is awake alert in no acute distress patient is resting comfortably and showing no signs of anxiety EYES: The conjunctivae are clear. The pupils are round and reactive. EARS, NOSE, MOUTH AND THROAT: The nose is without any evidence of any deformity. Mucous membranes are moist. Tongue is midline. NECK: The neck is nontender and supple. RESPIRATORY: Normal respiratory effort is noted there is no evidence of wheezing rhonchi or rales CARDIOVASCULAR: Regular rate and rhythm noted there no murmurs rubs or gallops normal S1 normal S2. GASTROINTESTINAL: The abdomen is soft. Abdomen is nontender. No rebound rigidity or guarding BACK: No midline tenderness or or step-off noted range of motion in flexion extension as well as rotation no signs of muscle spasm noted MUSCULOSKELETAL/EXTREMITIES: There is no evidence of gross deformity full range of motion is noted in the hips and shoulders. SKIN: There is no obvious evidence of any rash. There are no petechiae, pallor or cyanosis noted. NEUROLOGIC: Patient is awake alert and oriented x3 strength is symmetric Course Reevaluation(s) Reevaluation #1: Patient was started on IV fluids, Zosyn, is resting in no distress is normotensive Time: 11:57 Consultations Consultation #1: Case was discussed with the [facility] hospitalist for admission Time: 11:51 Administered Medications Discontinued Medications Sodium Chloride (Nss 1000ml) 1,000 mls @ 999 mls/hr IV .Q1H1M ONE Stop: 04/28/23 11:17 Last Admin: 04/28/23 10:47 Dose: 999 mls/hr Documented By: AJ Piperacillin Sod/Tazobactam (Sod 4.5 gm/ Dextrose) 120 mls @ 200 mls/hr IV NOW ONE; Protocol Stop: 04/28/23 11:20 Last Admin: 04/28/23 11:12 Dose: 200 mls/hr Documented By: JUSTIN Medical Decision Making Medical Records Attestation: I reviewed the patient's medical records. Home Medications Current Medication List: was personally reviewed by me Laboratory Data Attestation: I reviewed the patient's lab results. Patient has an elevated white blood cell count 04/28/23 10:11 04/28/23 10:11 Lab Results 04/28/23 04/28/23 04/28/23 Range/Units 10:11 10:11 10:11 WBC 14.09 H (4.8-10.8) K/ul RBC 4.25 L (4.70-6.10) M/uL Hgb 13.3 L (14.0-18.0) g/dl Hct 37.7 L (42.0-52.0) % MCV 88.7 (80.0-100.0) fL MCH 31.3 (25.0-34.0) pg MCHC 35.3 (32.0-36.0) g/dL RDW Std Deviation 43.0 (36.4-46.3) fL RDW Coeff of Mary 13.2 (11.5-14.5) % Plt Count 222 (130-400) K/uL MPV 8.9 L (9.4-12.4) fL Immature Gran % (Auto) 0.4 % Neut % (Auto) 81.1 % Lymph % (Auto) 8.4 % [place] % (Auto) 8.2 % Eos % (Auto) 1.1 % Baso % (Auto) 0.8 % Neut # (Auto) 11.42 H (1.40-6.50) K/uL Lymph # (Auto) 1.18 L (1.2-3.4) K/uL [place] # (Auto) 1.16 H (0.11-0.59) K/uL Eos # (Auto) 0.16 (0-0.50) K/uL Baso # (Auto) 0.11 (0-0.2) K/uL Immature Gran # (Auto) 0.06 (0.01-0.20) K/uL Sodium 135 L (136-145) mmol/L Potassium 4.2 (3.5-5.1) mmol/L Chloride 107 (98-107) mmol/L Carbon Dioxide 20 L (21-32) mmol/L Anion Gap 8 (3-11) BUN 28 H (6-23) mg/dl Creatinine 1.15 (0.6-1.4) mg/dl Est Cr Clr Drug Dosing 61.2 ml/min Est GFR ( Amer) 71.7 ml/min Est GFR (Non-Af Amer) 61.9 ml/min BUN/Creatinine Ratio 24.3 H (10-20) Glucose 97 (70-99(Fasting)) mg/dl Lactate (0.4-2.0) mmol/L Calcium 9.2 (8.6-10.3) mg/dl Magnesium 1.7 (1.7-2.4) mg/dl Total Bilirubin 0.5 (0.2-1.0) mg/dl Direct Bilirubin 0.1 (0-0.2) mg/dl AST 19 (13-39) U/L ALT 16 (7-52) U/L Alkaline Phosphatase 62 (34-104) U/L Troponin I High Sens 3.7 (0-20) pg/ml Total Protein 7.7 (6.0-8.3) gm/dl Albumin 4.5 (3.4-5.0) gm/dl Procalcitonin 0.10 (0-0.5) ng/ml Urine Color Urine Appearance (Clear) Urine pH (4.5-7.5) Ur Specific Dum[place] (1.000-1.030) Urine Protein (Negative) Urine Glucose (UA) (Negative) Urine Ketones (Negative) Urine Blood (Negative) Urine Nitrite (Negative) Urine Bilirubin (Negative) Urine Urobilinogen (Negative) Ur Leukocyte Esterase (Negative) SARS-CoV-2, RNA, NAAT (NEGATIVE) 04/28/23 04/28/23 04/28/23 Range/Units 10:45 10:45 Unknown WBC (4.8-10.8) K/ul RBC (4.70-6.10) M/uL Hgb (14.0-18.0) g/dl Hct (42.0-52.0) % MCV (80.0-100.0) fL MCH (25.0-34.0) pg MCHC (32.0-36.0) g/dL RDW Std Deviation (36.4-46.3) fL RDW Coeff of Mary (11.5-14.5) % Plt Count (130-400) K/uL MPV (9.4-12.4) fL Immature Gran % (Auto) % Neut % (Auto) % Lymph % (Auto) % [place] % (Auto) % Eos % (Auto) % Baso % (Auto) % Neut # (Auto) (1.40-6.50) K/uL Lymph # (Auto) (1.2-3.4) K/uL [place] # (Auto) (0.11-0.59) K/uL Eos # (Auto) (0-0.50) K/uL Baso # (Auto) (0-0.2) K/uL Immature Gran # (Auto) (0.01-0.20) K/uL Sodium (136-145) mmol/L Potassium (3.5-5.1) mmol/L Chloride (98-107) mmol/L Carbon Dioxide (21-32) mmol/L Anion Gap (3-11) BUN (6-23) mg/dl Creatinine (0.6-1.4) mg/dl Est Cr Clr Drug Dosing ml/min Est GFR ( Amer) ml/min Est GFR (Non-Af Amer) ml/min BUN/Creatinine Ratio (10-20) Glucose (70-99(Fasting)) mg/dl Lactate 1.1 (0.4-2.0) mmol/L Calcium (8.6-10.3) mg/dl Magnesium (1.7-2.4) mg/dl Total Bilirubin (0.2-1.0) mg/dl Direct Bilirubin (0-0.2) mg/dl AST (13-39) U/L ALT (7-52) U/L Alkaline Phosphatase (34-104) U/L Troponin I High Sens (0-20) pg/ml Total Protein (6.0-8.3) gm/dl Albumin (3.4-5.0) gm/dl Procalcitonin (0-0.5) ng/ml Urine Color Dark Yellow Urine Appearance Clear (Clear) Urine pH 5.5 (4.5-7.5) Ur Specific [place] 1.028 (1.000-1.030) Urine Protein Negative (Negative) Urine Glucose (UA) Negative (Negative) Urine Ketones Trace H (Negative) Urine Blood Negative (Negative) Urine Nitrite Negative (Negative) Urine Bilirubin Negative (Negative) Urine Urobilinogen Negative (Negative) Ur Leukocyte Esterase Negative (Negative) SARS-CoV-2, RNA, NAAT NEGATIVE (NEGATIVE) Imaging Data Attestation: I personally reviewed and interpreted this imaging study as follows: My Impression: Chest x-ray interpreted by me diffuse interstitial multifocal pneumonia Radiologist's Impression: Chest X-Ray 04/28/23 10:04 SINGLE VIEW CHEST CLINICAL HISTORY: Sepsis. FINDINGS: An AP, portable, upright chest radiograph is compared to study dated 01/24/2023 and correlated with chest CT dated 04/02/2023. The heart is enlarged noting atherosclerotic calcification of the thoracic aorta. The pulmonary vasculature is noncongested. Enlargement of the central pulmonary vessels suggests pulmonary artery hypertension. Emphysema and chronic interstitial thickening is similar to previous. There are foci of airspace consolidation in the right upper lobe and at the left lung base. No large pleural effusion or pneumothorax is identified. The skeletal structures are osteopenic. The bony thorax is grossly intact. IMPRESSION: 1. Cardiomegaly and emphysema. 2. Multifocal airspace consolidation is typical for pneumonia. Clinical correlation will be required and radiographic follow-up to resolution is recommended. ACT 112: Negative or not required by law. Electronically signed by: Jd Maciel M.D. 04/28/2023 10:38 AM [facility] Narrative Medical decision making differential diagnosis includes sepsis, urinary tract infection, pneumonia, COVID, electrolyte abnormality urinary tract infection, dehydration Plan is to check sepsis labs, give IV fluids Independent history was provided to me by the patient's family at bedside External medical records were reviewed by me Patient was started on 1 L of saline, Zosyn, patient will be admitted for early sepsis and pneumonia. Patient is not in septic shock at the time of admission at 11:50 AM Impression & Plan Sepsis, Pneumonia Discharge Plan Visit Data Chief Complaint: Illness Stated Complaint: DIARRHEA, CHILLS, FEVER ED Provider: Abhilash Veliz Discharge Problem: Sepsis, Pneumonia Patient Disposition: Admitted As Inpatient Forms Stand Alone Forms: My [facility] Prescriptions Prescriptions: No Action famotidine [Acid Dental Receptionist (famotidine)] 20 mg tablet 20 mg PO HS Qty: 30 3RF montelukast 10 mg tablet 10 mg PO DAILY Qty: 30 2RF valsartan 160 mg tablet 160 mg PO DAILY ciclopirox 0.77 % cream 1 applic topical BID PRN (Reason: Skin Irritation) meloxicam 7.5 mg tablet 15 mg PO DAILY tamsulosin [Flomax] 0.4 mg capsule 0.4 mg PO DAILY esomeprazole magnesium [Nexium] 20 mg capsule,delayed release(DR/EC) 40 mg PO DAILY bupropion HCl [Wellbutrin SR] 150 mg tablet sustained-release 12 hr 150 mg PO BID fexofenadine [Gissell Allergy] 180 mg tablet 180 mg PO DAILY fenofibrate micronized 200 mg Capsule 200 mg PO QAM aspirin 81 mg Tablet,Delayed Release (Dr/Ec) 81 mg PO QAM simvastatin 40 mg Tablet 40 mg PO HS acetaminophen 650 mg Tablet Extended Release 1,300 mg PO TID melatonin 2.5 mg/10 mL Liquid 5 mg PO HS PRN (Reason: Sleep) Patient Comments: *per pt is a spray* Rx Instructions: PER PT "USUALLY EVERY NIGHT". metoprolol succinate 25 mg tablet extended release 24 hr 25 mg PO QAM albuterol sulfate 90 mcg/actuation HFA aerosol inhaler 2 puff inhalation Q6H PRN (Reason: Shortness Of Breath Or Wheezing) Qty: 1 0RF Referrals Referrals: Linda Stock [Primary Care Provider] -
--- NOTE | 2023-04-28 10:39 | XRay Report ---
SINGLE VIEW CHEST CLINICAL HISTORY: Sepsis. FINDINGS: An AP, portable, upright chest radiograph is compared to study dated 01/24/2023 and correlate d with chest CT dated 04/02/2023. The heart is enlarged noting atherosclerotic calcification of the th oracic aorta. The pulmonary vasculature is noncongested. Enlargement of the central pulmonary vessels suggests pulmonary artery hypertension. Emphysema and chronic interstitial thickening is similar to previous. There are foci of airspace consolidation in the right upper lobe and at the left lung base. No large pleural effusion or pneumothorax is identified. The skeletal structures are osteopenic. The bony thorax is grossly intact. IMPRESSION: 1. Cardiomegaly and emphysema. 2. Multifocal airspace consolidation is typical for pneumonia. Clinical correlation will be required and radiographic follow-up to resolution is recommended. ACT 112: Negative or not required by law. Electronically signed by: Jd Maciel M.D. 04/28/2023 10:38 AM
[2023-04-28 10:42] LABS: Albumin Level 4.5 gm/dl (3.4-5.0); BUN Creatinine Ratio 24.3 (10-20); Bilirubin Direct 0.1 mg/dl (0-0.2); Bilirubin,Total 0.5 mg/dl (0.2-1.0); Calcium 9.2 mg/dl (8.6-10.3); Creatinine Clr Calc Pharmacy 61.2 ml/min; Est GFR (African American) 71.7 ml/min; Est GFR (Non-African American) 61.9 ml/min; Magnesium 1.7 mg/dl (1.7-2.4); Potassium 4.2 mmol/L (3.5-5.1); Total Protein 7.7 gm/dl (6.0-8.3)
[2023-04-28] MEDS ORDERED: PIPERACILLIN/TAZOBACTAM 4.5 GM in DEXTROSE 5% 100 ML IV ONE (10:45)
[2023-04-28 10:49] LABS: Troponin I High Sensitivity 3.7 pg/ml (0-20)
[2023-04-28 11:24] LABS: Appearance Urine Clear (Clear); Bilirubin Urine Negative (Negative); Blood Urine Negative (Negative); Color Urine Dark Yellow; Glucose Urine UA Negative (Negative); Ketones Urine Trace (Negative); Leukocyte Esterase Urine Negative (Negative); Nitrite Urine Negative (Negative); Protein Urine Negative (Negative); Specific Gravity Urine 1.028 (1.000-1.030); Urobilinogen Urine Negative (Negative); pH Urine 5.5 (4.5-7.5)
--- NOTE | 2023-04-28 11:58 | History & Physical Report ---
Date of Service April 28, 2023 Assessment & Plan (1) Pneumonia: Plan: Fever, chills, rigors 2/2 community-acquired pneumonia Meets SIRS criteria via temperature/leukocytosis. No evidence of end organ ischemia/damanage - Received 1L nss. Clinically near euvolemic but sbp ~105. +1L additival IVF for IBW fluids. Defer full 30cc/kg of actual body weight. Leukocytosis of 14.09, neutrophilic predominant without left shift Febrile to 101 before admission Curb-65 2 points, moderate risk. Inpatient treatment reasonable Creatinine with normal baseline, 1.15 on admission No transaminitis, lactate is normal UA is uninfected appearing CXR: Multifocal airspace consolidation suspicious for pneumonia. Pro-Tom pending We will treat as CAP with Rocephin. Given severe diarrhea and primary GI symptoms will add Legionella testing, stool bio fire, and adjunct azithromycin. Sodium 135, potassium normal. High sensitive troponin 3.7 No hypoxia History of COPD Last PFTs 12/13/2022: FVC 3.43 (87% predicted), FEV1 2.61 (92% predicted), FEV1/FVC 76. Testing suggest normal pulmonary function without bronchodilator response Defer inhalers at this time CAD No chest pain High sensitive troponin normal Admitting EKG: Normal sinus rhythm, QTc 432, no territorial signs of ischemia/ST/T wave changes Continue aspirin, metoprolol, simvastatin, valsartan Hypertension Metoprolol/valsartan as noted. Normotensive on admission. Hyperlipidemia Continue simvastatin/fenofibrate. Last LDL 43, defer conversion to atorvastatin GERD Continue PPI, H2 Tobacco abuse in remission - In remission DVT PPx: lovenox Diet: Dispo: med/surg Code: DNR/DNI (2) CAD (coronary artery disease), sokaogon coronary artery: (3) COPD (chronic obstructive pulmonary disease): (4) Multifocal pneumonia: (5) LPRD (laryngopharyngeal reflux disease): History of Present Illness Primary Care Provider: Linda Stock Alon is a 77-year-old male with a past medical history of tobacco induced interstitial lung disease/COPD, hyperlipidemia, CAD, hypertension, GERD, ERNIE intolerant/noncompliant with CPAP, BPH who presents to the emergency department with shaking chills/rigors, temperature of 101, and diarrhea. Alon reports he has had fever, shakes, chills, and diarrhea which began yesterday evening. slight cough 'but not too much' cough is nonproductive No abdominal pain. no nausea, no vomiting Does not normally have diarrhea Diarrhea is very water, not formed at all No recent antibiotic use, no history of C. diff No one sick in the home. NO sick contacts. No history of heart failure or heart disease Has a lump on his back. "have them all over for years. Cysts. Not chaning at all. Have on on his back, has had on neck several times belly, lower back."m Back cyst there x50 y ears and not changing. THe one on his neck, belly had gotetn infected in the past. Medical History: Reviewed Medications: Reviewed Surgical History: Reviewed Family history: Reviewed Allergies: Reviewed Social History: Quit cigarettes in December. Rare social etoh use. Code Status: DNR/DNI Allergies Allergy/AdvReac Type Severity Reaction Status Date / Time No Known Allergies Allergy Verified 02/21/23 10:25 Home Medications Medication Instructions Recorded Confirmed Type acetaminophen 650 mg 1,300 mg PO TID 06/15/20 04/28/23 History tablet,extended release aspirin 81 mg tablet,delayed 81 mg PO QAM 06/15/20 04/28/23 History release fenofibrate micronized 200 mg 200 mg PO QAM 06/15/20 04/28/23 History capsule simvastatin 40 mg tablet 40 mg PO HS 06/15/20 04/28/23 History melatonin 2.5 mg/10 mL oral liquid 5 mg PO HS PRN Sleep 10/13/20 04/28/23 History bupropion HCl 150 mg tablet,12 hr 150 mg PO BID 04/28/22 04/28/23 History sustained-release (Wellbutrin SR) esomeprazole magnesium 20 mg 40 mg PO DAILY 04/28/22 04/28/23 History capsule,delayed release (Nexium) fexofenadine 180 mg tablet 180 mg PO DAILY 04/28/22 04/28/23 History (Gissell Allergy) meloxicam 7.5 mg tablet 15 mg PO DAILY 04/28/22 04/28/23 History tamsulosin 0.4 mg capsule (Flomax) 0.4 mg PO DAILY 04/28/22 04/28/23 History ciclopirox 0.77 % topical cream 1 applic topical BID PRN Skin 09/13/22 04/28/23 History Irritation valsartan 160 mg tablet 160 mg PO DAILY 09/13/22 04/28/23 History metoprolol succinate 25 mg 25 mg PO QAM 01/03/23 04/28/23 History tablet,extended release 24 hr albuterol sulfate 90 mcg/actuation 2 puff inhalation Q6H PRN 01/04/23 04/28/23 Rx aerosol inhaler Shortness Of Breath Or Wheezing #1 inhaler famotidine 20 mg tablet (Acid 20 mg PO HS #30 tabs 02/20/23 04/28/23 Rx Multi Punch Operator (famotidine)) montelukast 10 mg tablet 10 mg PO DAILY #30 tabs 04/13/23 04/28/23 Rx Past Med/Surg History Medical History Abnormal CT scan, chest Allergic rhinitis Chronic back pain Hyperlipidemia Hypertension Osteoarthritis Tobacco abuse counseling Surgical History History of bilateral cataract extraction History of colonoscopy Family History Mother Hypertension Cancer Heart disease Sister Hypertension Cancer Heart disease Other No family history of adverse response to anesthesia Social History Smoking Status: Former smoker Tobacco Type: Cigarettes Age Started Using Tobacco: 18; packs per day: 1; Cigarettes Per Day: 20X 56 YEARS; Second Hand Exposure: Yes; Do You Dip or Chew Tobacco: No; Hx Alcohol Use: No Hx Substance Use: No Preferred Language: French Communication Ability: Effective Diesel Service Apprentice Required: No Beliefs That Will Affect Care: None Current Living Situation: Alone Current Living Situation Comment: Lives with daughter and daughter's family Feels Safe at Home: Yes Assistive Devices: Glasses Review of Systems Review of Systems: All systems reviewed & are unremarkable except as noted in HPI & below Physical Exam Physical Exam: General: A&Ox3. NAD. Cooperative. HEENT: Atraumatic, normocephalic. Vision/hearing intact. Pulm: Scattered rhonchi, +bibasilar crackles. Symmetrical chest rise. No increased work of breathing. No respiratory distress. Cardiac: RRR, -mrg. Radial pulses intact and symmetrical. Abdominal: Nontender, nondistended, soft. BS present. Ext: Warm, dry, no edema. Ambulates independently to the bathroom. Results & Data Results & Data Vital Signs (Past 12 Hours) Vital Signs Temp Pulse Pulse Resp BP BP Pulse Ox 04/28/23 10:46 89 20 121/71 96 04/28/23 10:24 96 H 04/28/23 10:17 94 H 20 130/78 96 04/28/23 10:04 98 04/28/23 09:55 37.3 C 100 H 18 122/74 95 O2 Del Method 04/28/23 10:46 Room Air 04/28/23 10:24 04/28/23 10:17 Room Air 04/28/23 10:04 Room Air 04/28/23 09:55 Room Air PG Care Time/CCT Total # of Minutes Spent Total Time Spent with Patient: Total time spent is greater than 50% in coordination of care (as documented) at patient's floor/unit and/or counseling patient: Coding Level of Care Code 27318 INT INP/OBS CARE 75MIN Diagnoses Pneumonia J18.9 CAD (coronary artery disease), sokaogon coronary artery I25.10 COPD (chronic obstructive pulmonary disease) J44.9 COPD type: unspecified COPD Multifocal pneumonia J18.9 LPRD (laryngopharyngeal reflux disease) K21.9 (3) COPD (chronic obstructive pulmonary disease) COPD type: unspecified COPD Qualified Code(s): J44.9 - Chronic obstructive pulmonary disease, unspecified
[2023-04-28] MEDS ORDERED: PLASMA-LYTE A 1,000 ML IV ONE (12:17)
[2023-04-28] MEDS ORDERED: PLASMA-LYTE A 500 ML IV ONE (13:20)
[2023-04-28] MEDS ORDERED: AZITHROMYCIN 500 MG in DEXTROSE 5% 250 ML IV ONE (13:31)
[2023-04-28] MEDS ORDERED: ALBUTEROL HFA 8 GM INHALER INH PRN (13:31)
[2023-04-28] MEDS ORDERED: MELATONIN 3 MG TAB PO PRN (13:43)
--- NOTE | 2023-04-28 13:47 | Electrocardiogram Report ---
Test Reason : Blood Pressure : / mmHG Vent. Rate : 096 BPM Atrial Rate : 096 BPM P-R Int : 166 ms QRS Dur : 078 ms QT Int : 342 ms P-R-T Axes : 044 -06 039 degrees QTc Int : 432 ms Normal sinus rhythm Normal ECG When compared with ECG of 03-JAN-2023 14:04, No significant change was found Confirmed by Harman Johnson ([id number]) on 04/28/2023 1:46:55 PM Referred By: Confirmed By:Aftab Johnson
[2023-04-28] MEDS: cefTRIAXone SODIUM 2,000 MG in DEXTROSE 5% 50 ML IV SCH (14:28)
[2023-04-28] MEDS: ENOXAPARIN INJ 40 MG/0.4 ML SYR SQ SCH (14:31)
[2023-04-28] MEDS: [UNRECOGNIZED DRUG - REMARK] SCH ×2 (17:19→23:00)
[2023-04-28] MEDS: buPROPion SR 150 MG TABCR PO SCH (20:22)
[2023-04-28] MEDS: ACETAMINOPHEN 325 MG TAB PO PRN (20:22)
[2023-04-28] MEDS ORDERED: FAMOTIDINE 20 MG TAB PO SCH (21:00)
[2023-04-28] MEDS ORDERED: SIMVASTATIN 40 MG TAB PO SCH (21:00)
[2023-04-29 06:40] LABS: Basophils # (auto) 0.08 K/uL (0-0.2); Basophils % (auto) 0.9 %; Eosinophils % (auto) 2.3 %; Hematocrit (blood only) 34.4 % (42.0-52.0); Hemoglobin 11.7 g/dl (14.0-18.0); Immature Granulocytes # (auto) 0.03 K/uL (0.01-0.20); Immature Granulocytes % (auto) 0.3 %; Mean Corpuscular Hemoglobin 30.8 pg (25.0-34.0); Mean Corpuscular Volume 90.5 fL (80.0-100.0); Monocytes # (auto) 0.75 K/uL (0.11-0.59); Monocytes % (auto) 8.6 %; Neutrophils # (auto) 5.63 K/uL (1.40-6.50); Neutrophils % (auto) 64.9 %; Platelet Count 206 K/uL (130-400); RDW Coefficient of Variation 13.4 % (11.5-14.5); White Blood Count 8.69 K/ul (4.8-10.8)
[2023-04-29 07:03] LABS: BUN Creatinine Ratio 19.6 (10-20); Calcium 8.8 mg/dl (8.6-10.3); Creatinine Clr Calc Pharmacy 76.5 ml/min; Est GFR (Non-African American) 81.1 ml/min; Potassium 3.8 mmol/L (3.5-5.1)
[2023-04-29] MEDS: ACETAMINOPHEN 325 MG TAB PO PRN (08:29)
[2023-04-29] MEDS: buPROPion SR 150 MG TABCR PO SCH (08:29)
[2023-04-29] MEDS: [UNRECOGNIZED DRUG - REMARK] SCH ×2 (08:30→15:04)
[2023-04-29] MEDS ORDERED: PANTOprazole 40 MG TAB PO SCH (09:00)
[2023-04-29] MEDS ORDERED: MONTELUKAST SODIUM 10 MG TABLET PO SCH (09:00)
[2023-04-29] MEDS ORDERED: FEXOFENADINE HCL 180 MG TAB PO SCH (09:00)
[2023-04-29] MEDS ORDERED: METOPROLOL SUCC 25MG EXT REL TAB PO SCH (09:00)
[2023-04-29] MEDS ORDERED: VALSARTAN 80 MG TAB PO SCH (09:00)
[2023-04-29] MEDS ORDERED: ASPIRIN 81 MG ECTAB PO SCH (09:00)
[2023-04-29] MEDS ORDERED: AZITHROMYCIN 250 MG in DEXTROSE 5% 250 ML IV SCH (09:00)
[2023-04-29] MEDS ORDERED: TAMSULOSIN HCL 0.4 MG CAP PO SCH (09:00)
[2023-04-29] MEDS: ENOXAPARIN INJ 40 MG/0.4 ML SYR SQ SCH (13:42)
[2023-04-29] MEDS: cefTRIAXone SODIUM 2,000 MG in DEXTROSE 5% 50 ML IV SCH (13:43)
[2023-04-29 14:38] LABS: Adenovirus F 40/41 PCR Not Detected (NotDetected); Astrovirus PCR Not Detected (NotDetected); Campylobacter PCR Not Detected (NotDetected); Cryptosporidium PCR Not Detected (NotDetected); Cyclospora cayetanensis PCR Not Detected (NotDetected); Entamoeba histolytica PCR Not Detected (NotDetected); Enteroaggregative E.coli(EAEC) Not Detected (NotDetected); Enterotoxigenic E.coli (ETEC) Not Detected (NotDetected); Giardia lamblia PCR Not Detected (NotDetected); Norovirus GI/GII PCR Not Detected (NotDetected); Plesiomonas shigelloides PCR Not Detected (NotDetected); Rotavirus A PCR Not Detected (NotDetected); Salmonella PCR Not Detected (NotDetected); Sapovirus PCR Not Detected (NotDetected); Shiga-like Toxin E.coli (STEC) Not Detected (NotDetected); Shigella/Enteroinvasive E.coli Not Detected (NotDetected); Vibrio cholerae PCR Not Detected (NotDetected); Vibrio species PCR Not Detected (NotDetected); Yersinia enterocolitica PCR Not Detected (NotDetected)
[2023-04-29 14:40] LABS: Enteropathogenic E.coli (EPEC) DETECTED (NotDetected)
--- NOTE | 2023-04-29 16:25 | Discharge Summary ---
Date of Service date of admission - April 28, 2023 date of discharge - April 29, 2023 Admission HPI Per Admitting Provider Alon is a 77-year-old male with a past medical history of tobacco induced interstitial lung disease/COPD, hyperlipidemia, CAD, hypertension, GERD, ERNIE intolerant/noncompliant with CPAP, BPH who presents to the emergency department with shaking chills/rigors, temperature of 101, and diarrhea. Alon reports he has had fever, shakes, chills, and diarrhea which began yesterday evening. slight cough 'but not too much' cough is nonproductive No abdominal pain. no nausea, no vomiting Does not normally have diarrhea Diarrhea is very water, not formed at all No recent antibiotic use, no history of C. diff No one sick in the home. NO sick contacts. No history of heart failure or heart disease Has a lump on his back. "have them all over for years. Cysts. Not chaning at all. Have on on his back, has had on neck several times belly, lower back."m Back cyst there x50 y ears and not changing. THe one on his neck, belly had gotetn infected in the past. Medical History: Reviewed Medications: Reviewed Surgical History: Reviewed Family history: Reviewed Allergies: Reviewed Social History: Quit cigarettes in December. Rare social etoh use. Code Status: DNR/DNI Principal Diagnosis 1. bilateral community-acquired pneumonia 2. e.coli enteritis Discharge Exam gen - NAD, looks good neck - no JVD heart - RRR, s1 s2, no murmur lungs - minimal rales bases; no wheezing; good airation abd - soft NT ND BS+ ext - no edema, pulses 2+ b/l Discharge Data Allergies Allergy/AdvReac Type Severity Reaction Status Date / Time No Known Allergies Allergy Verified 02/21/23 10:25 Ordered Studies Chest X-Ray 04/28/23 10:04 SINGLE VIEW CHEST CLINICAL HISTORY: Sepsis. FINDINGS: An AP, portable, upright chest radiograph is compared to study dated 01/24/2023 and correlated with chest CT dated 04/02/2023. The heart is enlarged noting atherosclerotic calcification of the thoracic aorta. The pulmonary vasc ulature is noncongested. Enlargement of the central pulmonary vessels suggests pulmonary artery hypertension. Emphysema and chronic interstitial thickening is similar to previous. There are foci of airspace consolidation in the right upper lobe and at the left lung base. No large pleural effusion or pneumothorax is identified. The skeletal structures are osteopenic. The bony thorax is grossly intact. IMPRESSION: 1. Cardiomegaly and emphysema. 2. Multifocal airspace consolidation is typical for pneumonia. Clinical correlation will be required and radiographic follow-up to resolution is re commended. ACT 112: Negative or not required by law. Electronically signed by: Jd Maciel M.D. 04/28/2023 10:38 AM Hospital Course (1) Pneumonia: b/l community-acquired received IV rocephin/azithromycin here, followed by PO cefdinir/azithromycin at discharge O2 sats were normal while here blood cultures were negative he should have a follow-up CXR in 4-6 weeks to ensure radiographic resolution especially in light of prior tobacco usage (2) E coli enteritis: patient had had diarrhea prior to his pulmonary symptoms starting stool BioFire was positive for enteropathogenic e.coli diarrhea improved while here azithromycin for #1 above will cover the e.coli standard precautions (hand washing, etc) were discussed with the patient & his family prior to discharge (3) CAD (coronary artery disease), [employer] coronary artery: no ischemic symptoms while here he will continue statin, metoprolol, aspirin, etc as previous in light of his CAD history I advised him to stop meloxicam use as NSAIDs are relatively contraindicated in those with known CAD (4) COPD (chronic obstructive pulmonary disease): patient did not require steroid therapy no COPD flare while here O2 sats at rest and with walking were wnl he did not require supplemental O2 Total Time Total Time Spent Total Time Spent (In Minutes): 25 Discharge Plan Discharge Items Patient Disposition: Home - Self-Care Reason For Visit: Pneumonia, Diarrhea Discharge Diagnosis: 1. bilateral pneumonia 2. diarrhea due to e.coli infection Activity: As commented below Activity Comment: gradually increase activities over the next 5-7 days Driving/Machine Use: Resume 3 days after discharge Non-emergency contact: Primary Care Provider Call non-emergency contact if: you have any medication questions, your symptoms worsen and you have a fever Follow-up/Referrals: Linda Stock [Primary Care Provider] - (see Ms Stock in 3-5 days ) Diet: Heart Healthy Addtl Attending Provider Instructions: Mr Mena, You were hospitalized due to pneumonia as well as a recent diarrheal illness. You improved nicely with antibiotics and supportive care. Stool testing was positive for a strain of e.coli. Most cases of this type of bacteria resolve on their own. However, one of the antibiotics for your pneumonia will also cover the e.coli. Your oxygen levels during your stay were normal. Your blood work on 04/29/23 was stable and normal. Recommendations - 1. antibiotics - * cefdinir 300mg twice daily x 5 days - first dose tomorrow 04/30/23 * azithromycin 500mg once daily x 3 days - first dose tomorrow 04/30/23; this antibiotic will cover your e.coli diarrhea as well 2. probiotics daily x 7 days to help improve your stools 3. for cough/congestion - * lskj-nlw-gudsnya mucinex up to 1200mg twice daily is a good choice * albuterol 2 puffs every 4 hours as needed for cough/congestion/wheezing 4. please have Ms Stock order you a repeat chest x-ray in 4-6 weeks to ensure all the pneumonia has resolved 5. please lower your daily amount of tylenol to 3000mg in total (1000mg three times daily); the 3000mg is a safer amount for your liver 6. please consider holding your meloxicam as this medication is typically not recommended in persons with heart disease; please talk to Ms Stock at the time of your follow-up about potential alternatives to meloxicam 7. for the e.coli diarrhea - please practice good handwashing at home - 20 seconds minimum soap & water after using the bathroom, etc. Use bleach or bleach wipes to clean your bathroom, doorknobs, etc to prevent transmission to others. Once the stools are back to normal the risk of contagiousness to others is very low 8. see Ms Stock in 3-5 days Return to [facility] if - * you experience worsening diarrhea, blood in your stools, etc * you have fevers over 100 degrees * you have worsening shortness of breath * you have abdominal pains * any other concerns It was our pleasure to care for you, Dr Nguyen Pending Studies at Discharge: Yes Studies:: blood cultures, but thus far negative Stand-Alone Forms: [facility], Smoking Cessation Medications and DC Order Prescriptions: Continued famotidine [Acid Chain Link Fence Installer (famotidine)] 20 mg tablet 20 mg PO HS Qty: 30 3RF montelukast 10 mg tablet 10 mg PO DAILY Qty: 30 2RF valsartan 160 mg tablet 160 mg PO DAILY ciclopirox 0.77 % cream 1 applic topical BID PRN (Reason: Skin Irritation) meloxicam 7.5 mg tablet 15 mg PO DAILY tamsulosin [Flomax] 0.4 mg capsule 0.4 mg PO DAILY esomeprazole magnesium [Nexium] 20 mg capsule,delayed release(DR/EC) 40 mg PO DAILY bupropion HCl [Wellbutrin SR] 150 mg tablet sustained-release 12 hr 150 mg PO BID fexofenadine [Gissell Allergy] 180 mg tablet 180 mg PO DAILY fenofibrate micronized 200 mg Capsule 200 mg PO QAM aspirin 81 mg Tablet,Delayed Release (Dr/Ec) 81 mg PO QAM simvastatin 40 mg Tablet 40 mg PO HS melatonin 2.5 mg/10 mL Liquid 5 mg PO HS PRN (Reason: Sleep) Patient Comments: *per pt is a spray* Rx Instructions: PER PT "USUALLY EVERY NIGHT". metoprolol succinate 25 mg tablet extended release 24 hr 25 mg PO QAM albuterol sulfate 90 mcg/actuation HFA aerosol inhaler 2 puff inhalation Q6H PRN (Reason: Shortness Of Breath Or Wheezing) Qty: 1 0RF Changed acetaminophen 650 mg Tablet Extended Release 1,000 mg PO TID Qty: 1 0RF Discharge Orders: Discharge Order (Routine); Ordered 04/29/23 Ordered By: Brayan Black/Other Patient Handouts: E. Coli Infection, What Is Pneumonia?, ED Pneumonia (Adult) Admission Data Admit Date/Time: 04/28/23 12:00 Attending Provider: Brayan Nguyen Admit Provider: Teja Wood Primary Care Provider: Linda Stock Other Providers: Teja Wood Other Interventions: Discharge Summary Assessment (RN) Last Done: 04/29/23 16:25 Coding Level of Care Code 63782 IN/OBS DISCH 30 MIN/LESS Diagnoses Pneumonia J18.9 E coli enteritis A04.4 CAD (coronary artery disease), [place] coronary artery I25.10 COPD (chronic obstructive pulmonary disease) J44.9 COPD type: unspecified COPD
--- NOTE | 2023-05-08 11:19 | Coding Query ---
A supporting diagnosis is required for the test/procedure performed on this patient in order for us to be reimbursed by the patient's insurance. Please provide a supporting diagnosis for the following test/procedure listed below next to the test name along with your signature. *If there is no additional diagnosis for this patient that would support the following test/procedure please document that below next to the test/procedure. Test(s)/Procedure(s) that require a supporting diagnosis: IADNA-DNA/RNA PROBE TQ12-25 DIAGNOSIS: R19.7Diarrhea; A41.9 Sepsis Provider Signature: ___Teja Wood IV Date: _05/11/23 Thank you Shae Trejo Health Information Management Once completed, please kindly fax back to [phone] For questions please call [phone] RICCARDO
== END 2023-04-29 17:02 | disposition home or self-care (01) ==
LOC: ED 09:37 → 3N 09:37 → SUATTDRO 12:00 → 3N 13:11

== ENCOUNTER 2023-10-25 11:03 | Observation (INO) ==
--- NOTE | 2023-09-26 10:53 | PAT Medication Instructions ---
Medication Instructions Date of Service September 26, 2023 Home Medications Medication Instructions Recorded albuterol sulfate 90 mcg/actuation 2 puff inhalation Q6H PRN 01/04/23 aerosol inhaler Shortness Of Breath Or Wheezing #1 inhaler acetaminophen 650 mg 1,000 mg (1.5385 x 650 mg) PO TID 04/29/23 tablet,extended release #1 tab testosterone 50 mg/5 gram (1 %) 1 tube transdermal QAM #150 grams 06/14/23 transdermal gel famotidine 20 mg tablet (Acid 20 mg PO HS #30 tabs 06/25/23 Modular Home Crew Member (famotidine)) aspirin 81 mg tablet,delayed release 81 mg PO QAM fenofibrate micronized 200 mg capsule 200 mg PO QAM simvastatin 40 mg tablet 40 mg PO HS melatonin 2.5 mg/10 mL oral liquid 5 mg PO HS PRN bupropion HCl 150 mg tablet,12 hr sustained-release (Wellbutrin SR) 150 mg PO BID esomeprazole magnesium 20 mg capsule,delayed release (Nexium) 40 mg PO QAM fexofenadine 180 mg tablet (Gissell Allergy) 180 mg PO HS meloxicam 7.5 mg tablet 15 mg PO QAM valsartan 160 mg tablet 160 mg PO QAM metoprolol succinate 25 mg tablet,extended release 24 hr 25 mg PO QAM albuterol sulfate 90 mcg/actuation aerosol inhaler 2 puff inhalation Q6H PRN acetaminophen 650 mg tablet,extended release 1,000 mg (1.5385 x 650 mg) PO TID testosterone 50 mg/5 gram (1 %) transdermal gel 1 tube transdermal QAM famotidine 20 mg tablet (Acid Modular Home Crew Member (famotidine)) 20 mg PO HS alfuzosin 10 mg tablet,extended release 24 hr 10 mg PO HS montelukast 10 mg tablet 10 mg PO HS tadalafil 20 mg tablet 20 mg PO DAILY PRN ASK your surgeon for instructions meloxicam 7.5 mg tablet 15 mg PO QAM ASK your prescriber and surgeon aspirin 81 mg tablet,delayed release 81 mg PO QAM STOP taking 48 hours before surgery fenofibrate micronized 200 mg capsule 200 mg PO QAM STOP taking 24 hours before surgery testosterone 50 mg/5 gram (1 %) transdermal gel 1 tube transdermal QAM DO NOT take the morning of surgery valsartan 160 mg tablet 160 mg PO QAM tadalafil 20 mg tablet 20 mg PO DAILY PRN Take morning of surgery With a small sip of water, OTHERWISE NOTHING TO EAT OR DRINK AFTER MIDNIGHT: bupropion HCl 150 mg tablet,12 hr sustained-release (Wellbutrin SR) 150 mg PO BID esomeprazole magnesium 20 mg capsule,delayed release (Nexium) 40 mg PO QAM metoprolol succinate 25 mg tablet,extended release 24 hr 25 mg PO QAM acetaminophen 650 mg tablet,extended release 1,000 mg (1.5385 x 650 mg) PO TID albuterol sulfate 90 mcg/actuation aerosol inhaler 2 puff inhalation Q6H PRN(use if needed; please bring with you to hospital day of surgery if possible) Take evening before surgery simvastatin 40 mg tablet 40 mg PO HS bupropion HCl 150 mg tablet,12 hr sustained-release (Wellbutrin SR) 150 mg PO BID fexofenadine 180 mg tablet (Gissell Allergy) 180 mg PO HS acetaminophen 650 mg tablet,extended release 1,000 mg (1.5385 x 650 mg) PO TID famotidine 20 mg tablet (Acid Modular Home Crew Member (famotidine)) 20 mg PO HS alfuzosin 10 mg tablet,extended release 24 hr 10 mg PO HS montelukast 10 mg tablet 10 mg PO HS melatonin 2.5 mg/10 mL oral liquid 5 mg PO HS PRN(if needed) albuterol sulfate 90 mcg/actuation aerosol inhaler 2 puff inhalation Q6H PRN(if needed) Other Notes If you have any questions please call us at [phone] or [phone] or [phone] or [phone]
--- NOTE | 2023-09-28 11:41 | Anesthesiology Consultation ---
Date of Service September 28, 2023 Assessment & Plan (1) Encounter for pre-operative examination: - Infectious disease screening: Per assessment on 09/28/23: No known infectious disease contacts or current infectious disease symptoms. No noted recent Covid positive test result. - Outpatient joint assessment: Pt currently scheduled for inpatient pathway. If surgeon requests review for outpatient joint pathway, patient is not recommended candidate for outpatient joint program from anesthesia standpoint. - Pulmonary visit (06/29/23): "Abnormal CT scan, chest.. He has some mild interstitial lung abnormalities probably due to years of smoking. We will continue patient on low-dose CT lung cancer screening protocol.. Mild intermittent asthma.. Symptoms well controlled with as needed albuterol.. Follow Up: March 2024 after low-dose CT chest" - Urology visit (09/18/23): "77-year-old male with urinary urgency, microscopic hematuria, low testosterone and erectile dysfunction Regarding his hematuria, recommended a CT urogram and cystoscopy.. Regarding his erectile dysfunction, discussed Trimix and he would like to try this. We have sent an order for the medication and asked that he call us when he gets it delivered so he can bring him in for teaching.. Regarding his low testosterone, I will defer to endocrinology as they started this medication.. Regarding his urinary symptoms, we will continue alfuzosin.. Return to clinic for CT urogram review and cystoscopy and possibly Trimix teaching if he has the medication by that time. Will try to get this done before October 25 as he is having a hip replacement" > patient scheduled for cystoscopy/Trimix teaching [place] [facility] [place] - Patient scheduled to see cardiology prior to surgery. Awaiting upcoming cardiology office visit note (Dr. Modi, appt 10/19). Chart Review Chart Review: Patient seen in Pre Admission Testing Teaching & Discussion Pre-Anesthesia Teaching/Discussion Notes: Instructed NPO after midnight before surgery,except medications with 15 cc of water. Medication instructions provided according to the PAT guidelines. History Surgery Operation Date: 10/25/23 10:20 Proposed Procedures p Left Total Hip Arthroplasty(Left) - Teja Watkins MD Height/Weight Height: 5 ft 9 in Weight: 94 kg Allergies Allergy/AdvReac Type Severity Reaction Status Date / Time No Known Allergies Allergy Verified 09/26/23 10:02 Medications Home Medications Medication Instructions Recorded Confirmed Last Taken aspirin 81 mg tablet,delayed 81 mg PO QAM 06/15/20 09/26/23 01/03/23 release fenofibrate micronized 200 mg 200 mg PO QAM 06/15/20 09/26/23 01/03/23 capsule simvastatin 40 mg tablet 40 mg PO HS 06/15/20 09/26/23 01/02/23 melatonin 2.5 mg/10 mL oral liquid 5 mg PO HS PRN Sleep 10/13/20 09/26/23 01/02/23 bupropion HCl 150 mg tablet,12 hr 150 mg PO BID 04/28/22 09/26/23 01/03/23 07:00 sustained-release (Wellbutrin SR) esomeprazole magnesium 20 mg 40 mg PO QAM 04/28/22 09/26/23 01/03/23 capsule,delayed release (Nexium) fexofenadine 180 mg tablet 180 mg PO HS 04/28/22 09/26/23 01/03/23 (Gissell Allergy) meloxicam 7.5 mg tablet 15 mg PO QAM 04/28/22 09/26/23 01/03/23 valsartan 160 mg tablet 160 mg PO QAM 09/13/22 09/26/23 01/03/23 metoprolol succinate 25 mg 25 mg PO QA 01/03/23 09/26/23 01/03/23 tablet,extended release 24 hr albuterol sulfate 90 mcg/actuation 2 puff inhalation Q6H PRN 01/04/23 09/26/23 Unknown aerosol inhaler Shortness Of Breath Or Wheezing #1 inhaler acetaminophen 650 mg 1,000 mg (1.5385 x 650 mg) PO TID 04/29/23 09/26/23 01/03/23 07:00 tablet,extended release #1 tab testosterone 50 mg/5 gram (1 %) 1 tube transdermal QAM #150 grams 06/14/2312/15 Unknown transdermal gel famotidine 20 mg tablet (Acid 20 mg PO HS #30 tabs 06/25/23 09/26/23 Unknown Supervisor Channel Process (famotidine)) alfuzosin 10 mg tablet,extended 10 mg PO HS 09/26/23 09/26/23 Unknown release 24 hr montelukast 10 mg tablet 10 mg PO HS 09/26/23 09/26/23 Unknown tadalafil 20 mg tablet 20 mg PO DAILY PRN Sexual Activity 09/26/23 09/26/23 Unknown Past Medical History Medical History (Updated 09/28/23 @ 14:51 by Emelia De Los Santos) Coronary artery calcification Noted on CT per cardiology records Following with cardiology History of COVID-19 09/2020- mild symptoms, resolved Sleep apnea No CPAP currently ("couldn't use it") Mild intermittent asthma Chronic Sepsis COPD (chronic obstructive pulmonary disease) LPRD (laryngopharyngeal reflux disease) Allergic rhinitis Hypertension Abnormal CT scan, chest Follows with [facility] pulmonary, review of previous CT chest indicates Previously seen left upper lobe groundglass density likely secondary to scarring per pulmonary Hyperlipidemia Chronic back pain Osteoarthritis Exercise / Class Metabolic Activity III < 4 Walking/Shop/Light housework Past Family History Family History Mother Hypertension Cancer Heart disease Sister Hypertension Cancer Heart disease Other No family history of adverse response to anesthesia Past Surgical History Surgical History History of bilateral cataract extraction Past Anesthesia History No Hx of Anesthesia Complications and No Family Hx of Anesthesia Complications History of PONV No Hx of PONV and No Hx of Motion Sickness Social History Smoking Status: Former smoker tobacco type: cigarettes Do You Dip or Chew Tobacco: No Smoking End Date: Quit 12/2022 (Hx 1PPD x 50+ years) Hx Alcohol Use: Yes Alcohol type: wine alcohol intake frequency: holidays/special occasions only Hx Substance Use: No substance use type: does not use Review of Systems Patient denies chest pain, shortness of breath, fever, chills, cough, wheezing, palpitations. Physical Exam Vital Signs VITALS BP 128/73 P 85 TEMP 98.4 SP02 96%RA RESP 16 PHYSICAL Full cervical extension range of motion. Full TMJ range of motion. TMD 3 finger breaths Mallampati Score 3 Dentition: missing molars Lungs: coarse breath sounds Cardiac: regular rate and rhythm, no murmurs noted Spine: normal Carotid arteries: negative bruit Extremities: no LE edema Short, thick neck Lab Results Anesthesia Preop Results Results Anesthesia Widget: WBC 10.27 K/ul (4.8-10.8) 09/28/23 Hgb 12.7 g/dl (14.0-18.0) L 09/28/23 Hct 36.4 % (42.0-52.0) L 09/28/23 Plt 230 K/uL (130-400) 09/28/23 Na 141 mmol/L (136-145) 09/28/23 K 3.9 mmol/L (3.5-5.1) 09/28/23 Cl 110 mmol/L (98-107) H 09/28/23 CO2 23 mmol/L (21-32) 09/28/23 BUN 25 mg/dl (6-23) H 09/28/23 Creat 0.97 mg/dl (0.6-1.4) 09/28/23 Glucose Level 146 mg/dl (70-99(Fasting)) H 09/28/23 PT 11.0 Seconds (9.0-12.0) 09/28/23 PTT 27 Seconds (21-31) 09/28/23 INR 1.0 (0.9-1.1) 09/28/23 Urine Color Dark Yellow 09/28/23 Urine pH 5.5 (4.5-7.5) 09/28/23 Urine Specific [place] 1.039 (1.000-1.030) H 09/28/23 Urine Protein Negative (Negative) 09/28/23 Urine Glucose (UA) 2+ (Negative) H 09/28/23 Urine Ketones Trace (Negative) H 09/28/23 Urine Blood Negative (Negative) 09/28/23 Urine Nitrite Negative (Negative) 09/28/23 Urine Bilirubin 1+ (Negative) H 09/28/23 Urine Urobilinogen Negative (Negative) 09/28/23 Urine Leukocyte Esterase Negative (Negative) 09/28/23 Blood Type O Positive 09/28/23 Antibody Screen NEGATIVE 09/28/23 Testing Laboratory Results Hgba1c (04/02/23): 5.5% Electrocardiogram Date: 04/28/23 Findings: + NSR @ (96) Chest X-Ray Date: 09/28/23 FINDINGS: PA and lateral chest radiographs are compared to study dated 08/31/2023. Correlation is made with chest CT dated 04/02/2023. The heart is enlarged and noting atherosclerotic calcification of the thoracic aorta. The pulmonary vasculature is noncongested. Emphysema and chronic interstitial thic kening is similar to previous. There is bibasilar scarring/atelectasis. No airspace consolidation or pleural effusion is identified. There is no pneumothorax. The skeletal structures are osteopenic. The bony thorax appears intact. Degenerative change is noted in the spine. IMPRESSION: Cardiomegaly and emphysema with no active disease in the chest. Echocardiogram Date: 08/10/22 EF greater than 70%. No regional wall motion abnormality. Grade 1 diastolic dysfunction. Top normal RV size with normal systolic function. Mild RAD. Mildly calcified, tricuspid aortic valve without stenosis or insufficiency. No significant valvular disease. Stress Test Date: 08/09/22 Type: exercise Negative exercise stress echocardiogram and EKG for ischemia at 86% MPHR. 6 METS. Patient is visibly dyspneic on exertion with O2 saturation of 88% at peak exercise. Patient denied feeling short of breath.
[~2023-10-25 11:03] MED LIST: ACETAMINOPHEN 500 MG TAB PO SCH; BUPIVACAINE 0.5 % 5 MG/1 ML PF 10ML VIAL ONE; CeleBREX 200 MG CAP PO SCH; FAMOTIDINE 20 MG TAB PO SCH; LR 500ML BOLUS, THEN 15ML/HR IV SCH; LR 60ML/HR IV SCH; ROPIV 0.5% 246mg, Ketorolac 30mg, EPINEPHrine 0.5mg in NSS INFIL SCH; Scopolamine 1 MG TDSY TD SCH; TRANEXAMIC ACID 1,000 MG **IV Intra-op IV SCH; TRANEXAMIC ACID 1,000 MG **IV Pre-op IV SCH; ceFAZolin 2000MG 2,000 MG/15 ML SYR IV SCH; dexAMETHasone**PF** 10 MG/ML VIAL IV SCH; traMADol HCL 50 MG TABLET PO SCH
[2023-10-25] MEDS ORDERED: MIDAZOLAM HCL 1 MG/ML 2ML VIAL ONE (12:45)
[2023-10-25] MEDS ORDERED: PROPOFOL IV EMULSION 10 MG/ML 20 ML VIAL IV ONE (12:45)
[2023-10-25] MEDS ORDERED: ePHEDrine sulfate 50 MG/ML AMP IV PRN (13:30)
[2023-10-25] MEDS ORDERED: ONDANSETRON INJ 2 MG/ML 2 ML VIAL IV PRN ×2 (13:30→15:56)
[2023-10-25] MEDS ORDERED: ATROPINE SULFATE 0.1 MG/ML 10ML SYR IV PRN (13:30)
[2023-10-25] MEDS ORDERED: fentaNYL citrate PF 100 MCG/2 ML VIAL IV PRN (13:30)
--- NOTE | 2023-10-25 13:36 | History & Physical Bridge Note ---
Date of Service October 25, 2023 History & Physical Bridge Note I have examined the patient, reviewed the History & Physical and in the interval since the performance of the History & Physical I have noted the following changes of clinical significance: Patient had some diarrhea earlier in the week, but no loose stools in the last 2 days. Has been eating drinking without problems. Otherwise, no changes noted. I spoke with his anesthesiologist, Dr. Fung and he believes it is safe to proceed with the surgery, so that is the plan.
[2023-10-25] MEDS ORDERED: ORTHO JOINT ANESTHETIC ONE (13:47)
[2023-10-25] MEDS ORDERED: ONDANSETRON INJ 2 MG/ML 2 ML VIAL ONE (15:32)
--- NOTE | 2023-10-25 15:53 | Operative Report ---
Post Operative Report Pre & Post Diagnosis Operation Date: 10/25/23 13:20 Pre-Op Diagnosis: Left Hip Osteoarthritis Post-Op Diagnosis: Left Hip Osteoarthritis I identified the patient and participated in the time-out.: Yes Procedure Operation Date: 10/25/23 13:20 Actual Procedures p Left Total Hip Arthroplasty, Uncemented(Left) - Teja Watkins MD Surgeon Teja Watkins MD Food Adviser Josee Brown PAJude Estimated Blood Loss 100 Findings Consistent with Post-Op Diagnosis Specimens femoral head and soft tissue Description of Procedure I was present during the entire procedure assisting with positioning, prepping, draping, wound retraction, wound closure, dressing and abduction pillow placement. No fellow present. Please see Dr. Watkins procedure note for specifics of the case. I attest to the content of the Intraoperative Record and any orders documented therein. Any exceptions are noted below.
[2023-10-25] MEDS ORDERED: MAGNESIUM HYDROXIDE SUSP 30 ML UDC PO PRN (15:56)
[2023-10-25] MEDS ORDERED: HYDROmorphone INJ 0.5 MG/0.5 ML SYR IV PRN (15:56)
[2023-10-25] MEDS ORDERED: ALUMINUM/MAGNESIUM SUSP 30 ML UDC PO PRN (15:56)
[2023-10-25] MEDS ORDERED: bisacodyL 10 MG SUPP PR PRN (15:56)
[2023-10-25] MEDS ORDERED: TAMSULOSIN HCL 0.4 MG CAP PO PRN (15:56)
[2023-10-25] MEDS ORDERED: diphenhydrAMINE 50 MG/ML VIAL IV PRN (15:56)
[2023-10-25] MEDS ORDERED: NALOXONE HCL 0.4 MG/1 ML VIAL/CARP IV PRN (15:56)
[2023-10-25] MEDS ORDERED: METOCLOPRAMIDE HCL INJ 5 MG/ML 2 ML VIAL IV PRN (15:56)
[2023-10-25] MEDS ORDERED: oxyCODONE HCL IR 5 MG TAB (IMMEDIATE RELEASE) PO PRN (15:56)
[2023-10-25] MEDS ORDERED: MELATONIN 3 MG TAB PO PRN (16:00)
[2023-10-25] MEDS ORDERED: NON-FORMULARY MEDICATION (Tadalafil 20 mg Tablet) PO PRN (16:00)
[2023-10-25] MEDS ORDERED: ALBUTEROL HFA 8 GM INHALER INH PRN (16:00)
--- NOTE | 2023-10-25 16:39 | Operative Report ---
Post Operative Report Pre & Post Diagnosis Operation Date: 10/25/23 13:20 Pre-Op Diagnosis: Left Hip Osteoarthritis Post-Op Diagnosis: Left Hip Osteoarthritis I identified the patient and participated in the time-out.: Yes Procedure Operation Date: 10/25/23 13:20 Actual Procedures p Left Total Hip Arthroplasty, Uncemented(Left) - Teja Watkins MD Surgeon Teja Watkins MD Analytics Manager Josee Brown PA-C Estimated Blood Loss 100 Findings Consistent with Post-Op Diagnosis Specimens Left hip arthritis Anesthesia Type Spinal MAC Complications none Disposition Disposition: Recovery Room Indications 78-year-old male, left hip arthritis refractory to conservative management, x- rays demonstrate joint space narrowing, subchondral sclerosis, and marginal osteophyte formation. I had a long discussion with him about the risks and b enefits surgery, alternatives to surgery, and expected outcomes. After reviewing all these he elected to proceed with surgery. All questions were answered. Informed consent was signed. Description of Procedure Patient was identified in the preoperative holding area where the surgical site, left hip, was marked. A spinal anesthetic was placed, then the patient was brought back to the main operating room, placed in the operating table and moved into the lateral decubitus position. Axillary roll was placed. All bony prominences were padded. Perioperative antibiotics and tranexamic acid 1 gram IV were administered. The operative extremity was prepped and draped in the normal sterile fashion. Prior to incision a multidisciplinary timeout was called. All in the room were in agreement. We began by making an incision for a posterior approach to the hip. We dissected down through subcutaneous tissues to the level of the fascia. The f ascia was incised in line with the incision. Charnley bow was placed. Fatty tissue was reflected posteriorly off the back of the greater trochanter to expose the piriformis and short external rotators of the hip. Quadratus femoris was taken off the femur subperiosteally. The piriformis and short external rotators were dissected off the posterior aspect of the hip. A box cut was made in the capsule. Inferior hip capsule was released off the femur. The femoral head was dislocated. The femoral neck cut was made at our preoperative template. The acetabulum was then exposed. The labrum was sharply excised. Contents of the cotyloid fossa were removed with electrocautery. We then began reaming at a size 8 mm less than our preoperative template. We reamed up by [address] the way up to a size 60 mm cup. This gave us good bleeding cancellus bone circumferentially. The acetabulum was then irrigated out and dried. The real [place] Gription cup was then impacted down into position with 45 degrees of lateral opening and 25 degrees of anteversion. Two cancellous bone screws were placed up into the ilium. Excellent fixation was obtained. A trial liner for a 36 mm femoral head was then placed. Next we turned our attention to the femur. The lateral neck was removed with a box osteotome. Intramedullary guide was used to establish the intramedullary canal. We then broached all the way up to a size 5. We began trialing with a high offset neck and a +5 head. Hip was reduced. Leg lengths were symmetric. The hip was stable in extension and external rotation, and stable in the sleeper position. At 90 degrees of hip flexion the hip could be internally rotated 75 degrees before levering out of the cup. I was very happy with the stability exam. Therefore the hip was dislocated and the femoral trial was removed. The acetabulum was re-exposed, and the trial liner was removed. Berwyn hole eliminator screw was placed. An Altrx polyethylene liner for a 36 mm femoral head was then impacted into the shell. The locking mechanism was checked to ensure that it had engaged which it had. The femur was re-exposed. The femoral canal was irrigated and dried. The real size 5 high offset Actis femoral stem was opened up. This was impacted down into position. The 36 mm ceramic femoral head with +5 mm offset was opened up and gently impacted down onto the trunnion. The hip was atraumatically reduced. Another 1 gram of IV tranexamic acid was started prior to closure. The wound was irrigated out with sterile Betadine solution. The periarticular injection cocktail was then placed. The short external rotators, piriformis, and posterior capsule were repaired through drill holes in the greater trochanter using #2 Vicryl. The fascia was run with a looped #1 PDS. The subcutaneous layer was closed with #1 PDS. The dermal layer was closed with 2-0 Vicryl. Zip line was used for the skin followed by a Silverlon dressing. A compressive dressing was then placed. The patient was then rolled supine. Leg lengths were rechecked and were symmetric. An abduction pillow was placed. Sedation was lifted and the patient was transferred to the recovery room in stable condition. Summary of implants: Depuy [place] Gription Acetabular Shell Sector Cup, 60 mm outer diameter 2 [place] Cancellous bone screws, 6.5 x 30 mm and 25 mm Berwyn hole eliminator Cliffwood Altrx Polyethylene Acetabular Liner, Neutral, with a 36 mm inner diameter DePuy Actis collared cementless Femoral stem, 12/14 taper, size 5 high offset 36 mm ceramic femoral head with +5 offset Postoperative course: Patient will be admitted to the hospital overnight from the recovery room. Patient will be weightbearing as tolerated with posterior hip precautions. Aspirin for DVT prophylaxis I attest to the content of the Intraoperative Record and any orders documented therein. Any exceptions are noted below.
--- NOTE | 2023-10-25 16:42 | Anesthesiology Progress Note ---
Date of Service October 25, 2023 Anesthesia Post Procedure Vital Signs Vital Signs: Temp Pulse Pulse Resp BP Pulse Ox O2 Del Method 10/25/23 16:30 36.4 C L 73 20 131/71 96 Room Air 10/25/23 16:20 80 18 119/65 95 Room Air 10/25/23 16:10 71 16 112/66 94 Room Air 10/25/23 16:00 70 14 111/64 97 Room Air 10/25/23 15:53 36.2 C L 79 16 116/67 97 Room Air 10/25/23 12:14 36.4 C L 76 20 146/83 H 98 Room Air Transfer of Care Handoff Completed per policy Notes Mental Status: alert / awake / arousable Patient Amnestic to Procedure: Yes Nausea / Vomiting: adequately controlled Pain: adequately controlled Airway Patency, RR, SpO2: stable & adequate BP & HR: stable & adequate Hydration State: stable & adequate Anesthetic Complications: no major complications apparent
--- NOTE | 2023-10-25 17:06 | XRay Report ---
SINGLE VIEW PELVIS CLINICAL HISTORY: Postoperative examination. FINDINGS: 2 AP, portable, supine pelvic radiographs are compared to study dated 09/28/2023. The skeleta l structures are osteopenic. A bipolar left hip arthroplasty is in near anatomic alignment. At least 2 cortical lag screw transfix the acetabular cup. Mild arthritic change and joint space narrowing is noted in the right hip. There is degenerative sclerosis of the sacroiliac joints. Lumbosacral spondyl osis is partially imaged. Subcutaneous gas and soft tissue swelling overlying the left hip are expect ed postsurgical changes. IMPRESSION: Expected postoperative findings status post left hip arthroplasty. No acute fracture is s een. Electronically signed by: Jd Maciel M.D. 10/25/2023 5:05 PM
[2023-10-25] MEDS: Scopolamine CHECK PATCH PLACEMENT SCH (18:26)
[2023-10-25] MEDS: KETOROLAC TROMETHAMINE 15 MG/ML VIAL IV SCH (18:39)
[2023-10-25] MEDS: SODIUM CHLORIDE 0.9% 1,000 ML IV SCH (18:40)
[2023-10-25] MEDS: ASPIRIN 81 MG ECTAB PO SCH (20:03)
[2023-10-25] MEDS: DOCUSATE SODIUM 100 MG CAP PO SCH (20:04)
[2023-10-25] MEDS: buPROPion SR 150 MG TABCR PO SCH (20:05)
[2023-10-25] MEDS ORDERED: TAMSULOSIN HCL 0.4 MG CAP PO SCH (21:00)
[2023-10-25] MEDS ORDERED: MONTELUKAST SODIUM 10 MG TABLET PO SCH (21:00)
[2023-10-25] MEDS ORDERED: FEXOFENADINE HCL 180 MG TAB PO SCH (21:00)
[2023-10-25] MEDS ORDERED: SENNA 8.6 MG TAB PO SCH (21:00)
[2023-10-25] MEDS ORDERED: FAMOTIDINE 20 MG TAB PO SCH (21:00)
[2023-10-25] MEDS ORDERED: SIMVASTATIN 40 MG TAB PO SCH (21:00)
[2023-10-25] MEDS: ceFAZolin 2000MG 2,000 MG/15 ML SYR IV SCH (21:36)
[2023-10-25] MEDS: ACETAMINOPHEN 500 MG TAB PO SCH (21:36)
[2023-10-26] MEDS: Scopolamine CHECK PATCH PLACEMENT SCH ×2 (00:16→08:23)
[2023-10-26] MEDS: KETOROLAC TROMETHAMINE 15 MG/ML VIAL IV SCH ×2 (00:16→05:46)
--- OUTSIDE RECORDS SUMMARY | 2023-10-26 03:10 | External Medical Summary | Continuity of Care Document ---
Author Name Unknown Organization [facility] Address [address] [place], [place] [id number] Care Team Providers Care Veterinary Toxicologist Name Role Phone Linda Stock Primary Care Physician [id number] [facility]counter [facility] [id number] Date(s): 10/19/23 - 10/19/23 [facility] [address], [address] [place] [address] [phone] Encounter Diagnosis Hip pain(Discharge Diagnosis) - 08/23/23 Tobacco abuse(Discharge Diagnosis) - 10/19/23 HTN (hypertension)(Discharge Diagnosis) - 10/19/23 Hyperlipidemia(Discharge Diagnosis) - 10/19/23 COPD (chronic obstructive pulmonary disease)(Discharge Diagnosis) - 10/19/23 CAD in [place] artery(Discharge Diagnosis) - 10/19/23 Preop cardiovascular exam(Discharge Diagnosis) - 10/19/23 S/P total hip arthroplasty(Discharge Diagnosis) - 10/19/23 Discharge Disposition: Home or Self Care Attending Physician: DO Modi Jason D Allergies, Adverse Reactions, Alerts No Known Allergies Assessment and Plan Extracted from: Title:Cardiology Office Visit Note Author:DO Modi Jason D Date:10/19/23 1.HTN (hypertension) 2.Hyperlipidemia 3.COPD (chronic obstructive pulmonary disease) 4.Tobacco abuse 5.CAD in [place] 6.Preop cardiovascular exam He underwent stress testing 14 months ago with an nonischemic stress test. We do note that his functional capacity then was limited likely a combination of orthopedic issues and underlying lung disease. His CAT scan is consistent with COPD. He has no ischemic changes on his EKG today. He does have some limitations with activity but sounds like he is relatively stable. Therefore I think he can proceed with surgery at intermediate risk. I believe his risk of cardiac complications is in the range of 3 to 4%. This includes heart attack, dying from cardiac causes, arrhythmia and congestive heart failure. He is on an appropriate regiment for secondary prophylaxis. This includes aspirin, beta-blockers, statin therapy, valsartan, and a fenofibrate. His last LDL from March was under 50 and his triglycerides were under 150 (labs from the [facility]) We discussed the idea of supply demand with regards to cardiac symptoms. We also discussed if he noted a progressive decline in his functional capacity to let us know. We discussed the sensitivity and specificity of stress testing. Will see Shae in 6 months with a repeat lipid profile and complete metabolic profile. I will see him in a year. All his 's questions were answered in detail. Immunizations Given and Recorded Vaccine Date Status Refusal Reason SARS-CoV-2 (COVID-19) mRNA-vacc - [id number] 06/19/23 Recorded influenza virus vaccine, inactivated 06/15/23 Jay rded influenza virus vaccine, inactivated 05/08/22 Jay rded influenza virus vaccine, inactivated 04/24/22 Jay rded influenza virus vaccine, inactivated 1 05/10/20 Re corded influenza virus vaccine, inactivated 05/08/19 Jay rded influenza virus vaccine, inactivated 2 04/30/15 Re corded influenza virus vaccine, inactivated 10/31/12 Give n RSV Vaccine Unspecified 06/15/23 Recorded SARS-CoV-2 mRNA-1273 (booster only) vacc 06/04/22 Recorded SARS-CoV-2 mRNA (tozinameran 5y-11y) 12/27/21 Jay rded SARS-CoV-2 (COVID-19) mRNA-1273 vaccine 3 12/26/21 Recorded SARS-CoV-2 (COVID-19) mRNA-1273 vaccine 4 11/17/20 Recorded SARS-CoV-2 (COVID-19) mRNA-1273 vaccine 11/17/20 R ecorded SARS-CoV-2 (COVID-19) mRNA-1273 vaccine 10/20/20 R ecorded SARS-CoV-2 (COVID-19) ChAdOx1 vaccine 5 07/20/21 R ecorded zoster vaccine, inactivated 04/12/20 Recorded zoster vaccine, inactivated 6 02/10/20 Recorded zoster vaccine, inactivated 7 07/23/19 Recorded tetanus/diphtheria/pertuss, acel (Tdap) 8 02/10/20 Recorded tetanus/diphtheria/pertuss, acel (Tdap) 9 12/24/19 Recorded pneumococcal 23-valent vaccine 10 07/23/19 Recorde d pneumococcal 13-valent vaccine 11 07/05/18 Recorde d pneumococcal 13-valent vaccine 12 07/29/15 Recorde d 1Result Comment: Fluad Quad 2Result Comment: High Dose Fluzone 3Result Comment: 2022-06-06: Historical information-source unspecified 4Result Comment: #2nd dose per pt 5Result Comment: Booster 6Result Comment: 2021-02-09: Historical information-source unspecified 7Result Comment: Inactive Herpes Zoster 8Result Comment: 2021-02-09: Historical information-source unspecified 9Result Comment: TDAP Boostrix 10Result Comment: Pneumovax 23 11Result Comment: 2020-02-10: Historical information-source unspecified 12Result Comment: Prevnar 13 Medications Albuterol (Eqv-Proventil HFA) 90 mcg/inh inhalation aerosol Start: 11/13/22 8:39:00 EST, See Instructions, Disp# 6.7 g, Refills: 3, inhale 2 puffs by mouth andINTO THE LUNGS four times a day if needed for wheezing, Pharmacy: [facility] #[id number] Start Date: 11/13/22 Status: Ordered alfuzosin 10 mg oral tablet, extended release Start: 10/03/23 14:00:00 EST, 1 tab, PO, Daily Start Date: 10/03/23 Status: Ordered Gissell Start: 03/20/22 10:19:00 EDT, 180 mg =, PO, Daily, PRN: per protocol Start Date: 03/20/22 Status: Ordered aspirin 81 mg oral tablet Start: 10/23/11 15:25:00, 1 tab, PO, Daily, tab Start Date: 10/23/11 Status: Ordered BuPROPion (Eqv-Wellbutrin SR) 150 mg/12 hours oral tablet, extended release Start: 09/25/23 12:10:00 EST, 1 tab, PO, bid, Disp# 60 tab, Refills: 10, Pharmacy: [facility] #[id number] Start Date: 09/25/23 Status: Ordered famotidine 20 mg oral tablet Start: 10/17/22 16:25:00 EST, 1 tab, PO, Daily Start Date: 10/17/22 Status: Ordered fenofibrate micronized 200 mg oral capsule Start: 04/27/23 8:18:00 EDT, See Instructions, Disp# 90 cap, Refills: 2, take 1 capsule by mouth once daily, Pharmacy: [facility] #[id number] Start Date: 04/27/23 Status: Ordered melatonin 5 mg oral capsule Start: 08/20/20 11:23:00 EST, 1 cap, PO, qhs Start Date: 08/20/20 Status: Ordered meloxicam 7.5 mg oral tablet Start: 04/11/23 16:59:00 EDT, See Instructions, Disp# 60 tab, Refills: 11, take 2 tablets by mouth once daily, Pharmacy: [facility] #[id number] Start Date: 04/11/23 Status: Ordered metoprolol succinate 25 mg oral tablet, extended release Start: 10/18/23 11:47:00 EST, 1 tab, PO, qhs, Disp# 30 tab, Refills: 11, Pharmacy: [facility] #[id number] Start Date: 10/18/23 Status: Ordered montelukast 10 mg oral tablet Start: 06/26/22 12:59:00 EDT, 1 tab, PO, qPM Start Date: 06/26/22 Status: Ordered NexIUM Start: 03/20/22 10:19:00 EDT, 40 mg =, PO, Daily Start Date: 03/20/22 Status: Ordered simvastatin 40 mg oral tablet Start: 06/14/23 20:23:00 EDT, 1 tab, PO, qhs, Disp# 90 tab, Refills: 3, Pharmacy: [facility] #[id number] Start Date: 06/14/23 Status: Ordered Tadalafil (Eqv-Cialis) 20 mg oral tablet Start: 07/19/23 11:54:00 EDT, 1 tab, PO, Daily, Disp# 10 tab, Refills: 3, PRN: if needed, Pharmacy:[facility] #[id number] Start Date: 07/19/23 Status: Ordered Testosterone (Eqv-AndroGel Packets) 20.25 mg/1.25 g (1.62%) transdermal gel Start: 10/19/23 11:03:00 EST Start Date: 10/19/23 Status: Ordered Tylenol 8 HR Arthritis Pain 650 mg oral tablet, extended release Start: 11/12/18 14:33:00 EST, 2 tab, PO, q8h, Disp# 100 tab, Pharmacy: [id number] Start Date: 11/12/18 Status: Ordered valsartan 160 mg oral tablet Start: 08/20/23 13:22:00 EST, 1 tab, PO, Daily, Disp# 30 tab, Refills: 11, Pharmacy: [facility] #[id number] Start Date: 08/20/23 Stop Date: 08/14/24 Status: Ordered Problem List Condition Confirmation Course Effective Dates Status H ealth Status Informant Allergic rhinitis Confirmed Active Arthritis of left hip. Confirmed Active CAD in [place] artery Confirmed Active COPD (chronic obstructive pulmonary disease) 1 Confirmed 03/29/22 Active Erectile dysfunction Confirmed Active GERD Confirmed Active Gingivitis Confirmed Active Left hip pain Confirmed Active Hyperlipidemia Confirmed Active Hyperlipidemia Confirmed Active HTN (hypertension) Confirmed Active Impaired fasting blood sugar Confirmed Active Frequency of urination Confirmed Active Insomnia Confirmed Active Tinea unguium Confirmed Active Osteoarthritis Confirmed Active Osteoarthritis of left hip Confirmed Active Screening for abdominal aortic aneurysm Confirmed Active Peripheral vascular disease Confirmed Active Right shoulder pain Confirmed Active Tobacco abuse Confirmed Active Toothache Confirmed Active Weight monitoring Confirmed Active 1shown on chest CT Diagnosis Diagnosis Type Effective Dates Health Status Clinical Service Informant Hip pain Discharge Diagnosis 08/23/23 Non-Specified HTN (hypertension) Discharge Diagnosis 10/19/23 Hyperlipidemia Discharge Diagnosis 10/19/23 Tobacco abuse Discharge Diagnosis 10/19/23 COPD (chronic obstructive pulmonary disease) Discharge Diagnosis 10/19/23 CAD in [place] artery Discharge Diagnosis 10/19/23 Preop cardiovascular exam Discharge Diagnosis 10/19/23 S/P total hip arthroplasty Discharge Diagnosis 10/19/23 Non-Specified Procedures Procedure Date Related Diagnosis Body Site Status Chest x-ray 1 05/22/23 Completed Chest x-ray 2 01/24/23 Completed Chest X-ray 3 01/03/[address] of lungs 4 03/29/22 Completed Cataract Right eye 5 10/06/20 Comp leted Cataract 6 06/23/20 Completed colonoscopy 09/24/01 Completed 1No acute cardiopulmonary finding. Resolution of the multifocal airspace opacities on chest radiograph of 04/28/23 21. Near-complete resolution of the hazy multifocal airspace opacities. This favors a resolving pneumonia. An additional one month chest x-ray follow up recommended to ensure complete resolution. 2. Mild chronic interstitial thickening again noted. 31. Multifocal airspace consolidation is typical for penumonia. Clinical correlation will be required and radiographic follow-up to resolution is recommended. 2. Cardiomegaly and mild emphysema. 3. No large pleural effusion is seen. 4Emphysema with bibasilar prominent subpleural reticular opacities with intermixed glass densities suggestive of fibrosis with atelectasis. Suerimposed acute infectious or inflammatory pnemonitis is considered less likely. 1.2 cm subpleural groundglass opacity of the left upper lobe is also likely related to the aforementioned findings as above. Attention at follow-up recommended. No Suspicious pulmonary nodules. Hepatomegaly with hepatic steatosis. 5right eye 6Cataract left eye Vital Signs Most recent to oldest [Reference Range]: 1 Patient Weight 90 kg (10/19/23 11:13 AM) Heart Rate 80 bpm (10/19/23 11:13 AM) Blood Pressure 118/62mmHg (10/19/23 11:13 AM) BP Location # 1 Right Arm (10/19/23 11:13 AM) Social History Social History Type Response Tobacco Current every day sm oker, Cigarettes 1 Smoking Status Former Smoker, quit within 31 days - 1 yr Sex 13 ppd Cardiology * Contributor_system, MUSE01: VERIFY, PERFORM Event Display: EKG Authored Date: Please click on link to see image. Cardiology Outpatient Note * DO Modi Jason D: PERFORM Event Display: Cardiology Outpt Note Authored Date: [id number] Primary Care Provider LISSY Stock Tara Chief Complaint pre op for hip replacement on 10/25/23 History of Present Illness He denies any chest pain or chest pressure with activity. He is most limited due to significant hip discomfort. He can walk in the grocery store for about 10 minutes and then needs to stop due tosignificant hip pain. He does have some shortness of breath with activity which she describes as stable. He lives at home on 1 floor. He has no lightheadedness or dizziness. He denies any lower extremity edema. He has had no palpitations or fluttering or feeling his heart racing. He will undergo hip replacement surgery next week and notes he probably needs to have the other hip done as well. He does get up at night to go to the bathroom but denies any orthopnea. He hasno orthostatic symptoms. Review of Systems Impression: 1. Extensive coronary calcifications on CT 2. Emphysema with 60 pack year history of smoking 3. HTN 4. Dyslipidemia 5. Hypertriglyceridemia 6. Moderate sleep apnea unable to tolerate CPAP 7. Echocardiogram 07/2022ejection fraction of 70%, no regional wall motion abnormalities, normalRV size with normal RV systolic function, no significant valvular abnormalities, insufficient data for estimation pulmonary artery systolic pressures 8. Stress echo 07/2022negative exercise stress echo and EKG for ischemia 86% MPHR, below averageexercise tolerance for age and gender at 84% of predicted achieving 6 METs, oxygen saturation of 88% at peak exercise 9. ERNIE unable to tolerate CPAP 10. History of tobacco use quitting 12/2022 Physical Exam Vitals & Measurements HR:80(Monitored) BP:118/62 SpO2:98% WT:90.000kg(Dosing) WT:90kg Patient is awake alert and oriented x3and in no acute distress HEENT:2+ carotid upstrokes, no evidence of carotid bruits LUNGS:Globally reduced breath sounds but no rales rhonchi or wheezing HEART:Regular rate and rhythmno appreciable murmurs rubs or gallops EXTREMITIES:No evidence of clubbing cyanosis or edema PSYCHIATRIC:Patient's affect appeared appropriate EKG Today: NML ECG at 77 BPM Assessment/Plan 1.HTN (hypertension) 2.Hyperlipidemia 3.COPD (chronic obstructive pulmonary disease) 4.Tobacco abuse 5.CAD in [place] 6.Preop cardiovascular exam He underwent stress testing 14 months ago with an nonischemic stress test. We do note that his functional capacity then was limited likely a combination of orthopedic issues and underlying lung disease. His CAT scan is consistent with COPD. He has no ischemic changes on his EKG today. He does have some limitations with activity but sounds like he is relatively stable. Therefore I think he can proceed with surgery at intermediate risk. I believe his risk of cardiac complications is in the range of 3 to 4%. This includes heart attack, dying from cardiac causes, arrhythmia and congestive heart failure. He is on an appropriate regiment for secondary prophylaxis. This includes aspirin, beta-blockers,statin therapy, valsartan, and a fenofibrate. His last LDL from March was under 50 and his triglycerides were under 150 (labs from the [facility]) We discussed the idea of supply demand with regards to cardiac symptoms. We also discussed if he noted a progressive decline in his functional capacity to let us know. We discussed the sensitivity and specificity of stress testing. Will see Shae in 6 months with a repeat lipid profile and complete metabolic profile. I will see him in a year. All his 's questions were answered in detail. Problem List/Past Medical History Ongoing Allergic rhinitis Arthritis of left hip. CAD in [place] artery COPD (chronic obstructive pulmonary disease) Erectile dysfunction Frequency of urination GERD Gingivitis HTN (hypertension) Hyperlipidemia Hyperlipidemia Impaired fasting blood sugar Insomnia Left hip pain Osteoarthritis Osteoarthritis of left hip Peripheral vascular disease Right shoulder pain Screening for abdominal aortic aneurysm Tinea unguium Tobacco abuse Toothache Weight monitoring Historical Elevated BP without diagnosis of hypertension Physical exam Smoker Sore throat Tobacco abuse Tooth abscess Procedure/Surgical History Chest x-ray (05/22/2023)Chest x-ray (01/24/2023)Chest X-ray (01/03/2023)CT of lungs (03/29/2022)Cataract Right eye (10/06/2020)Cataract (06/23/2020)colonoscopy (09/24/2001) Medications acetaminophen(Tylenol 8 HR Arthritis Pain 650 mg oral tablet, extended release), 1300 mg= 2 tab, PO, q8h albuterol(Albuterol (Eqv-Proventil HFA) 90 mcg/inh inhalation aerosol), See Instructions alfuzosin(alfuzosin 10 mg oral tablet, extended release), 10 mg= 1 tab, PO, Daily aspirin(aspirin 81 mg oral tablet), 81 mg= 1 tab, PO, Daily buPROPion(BuPROPion (Eqv-Wellbutrin SR) 150 mg/12 hours oral tablet, extended release), 1 tab, PO, bid esomeprazole(NexIUM), 40 mg, PO, Daily famotidine(famotidine 20 mg oral tablet), 20 mg= 1 tab, PO, Daily fenofibrate(fenofibrate micronized 200 mg oral capsule), See Instructions fexofenadine(Gissell), 180 mg, PO, Daily, PRN melatonin(melatonin 5 mg oral capsule), 5 mg= 1 cap, PO, qhs meloxicam(meloxicam 7.5 mg oral tablet), See Instructions, 11 refills metoprolol(metoprolol succinate 25 mg oral tablet, extended release), 25 mg= 1 tab, PO, qhs, 11 refills montelukast(montelukast 10 mg oral tablet), 10 mg= 1 tab, PO, qPM simvastatin(simvastatin 40 mg oral tablet), 40 mg= 1 tab, PO, qhs, 3 refills tadalafil(Tadalafil (Eqv-Cialis) 20 mg oral tablet), 1 tab, PO, Daily, PRN testosterone(Testosterone (Eqv-AndroGel Packets) 20.25 mg/1.25 g (1.62%) transdermal gel) valsartan(valsartan 160 mg oral tablet), 160 mg= 1 tab, PO, Daily, 11 refills Allergies NKA Social History Smoking Status Former Smoker, quit within 31 days - 1 yr Alcohol - Low Risk Home/Environment - Low Risk Tobacco - High Risk Use:Current every day smoker Type:Cigarettes - Comments: 1 ppd Family History Breast cancer: Sister. Cardiovascular disease: Mother. High Blood Pressure: Mother. Pacemaker: Mother. Health Status Family Member(s) Electronic Signature on File CC: LISSY Nelson [address] [place] [id number] CC: Teja Watkins MD [address] [id number] Electronically Reviewed/Signed by: Kerwin Modi DO Author Signature Dt/Tm:10/19/2023 11:58 AM [employer] treasurer [facility] [address], [address] [place] [address] JDF Patient Care team information Care Team Personnel Name: LISSY Stock Tara Position: Nurse Pract - Family Med Member Role: Primary Care Provider Address: Address: [address] [place] [address] [place] Name: ALEJO Laurent Christina L Position: Physician - Podiatry Member Role: Lifetime Relationship Address: Address: [address] [place] [address] [place] Care Team Related Persons Name: MAGNOLIA ONEAL Address: home [address] [place] [address] GARRY MACIAS [phone]
[2023-10-26] MEDS: SODIUM CHLORIDE 0.9% 1,000 ML IV SCH (03:41)
[2023-10-26] MEDS: ACETAMINOPHEN 500 MG TAB PO SCH (05:45)
[2023-10-26] MEDS: ceFAZolin 2000MG 2,000 MG/15 ML SYR IV SCH (05:46)
[2023-10-26 07:05] LABS: Basophils # (auto) 0.04 K/uL (0.00-0.20); Basophils % (auto) 0.3 %; Eosinophils # (auto) 0.03 K/uL (0.00-0.50); Eosinophils % (auto) 0.2 %; Hematocrit (blood only) 30.4 % (42.0-52.0); Hemoglobin 10.4 g/dl (14.0-18.0); Immature Granulocytes # (auto) 0.14 K/uL (0.01-0.20); Immature Granulocytes % (auto) 1.2 %; Lymphocytes # (auto) 1.27 K/uL (1.20-3.40); Lymphocytes % (auto) 10.5 %; Mean Corpuscular Hgb Conc 34.2 g/dL (32.0-36.0); Mean Corpuscular Volume 87.6 fL (80.0-100.0); Monocytes # (auto) 0.87 K/uL (0.11-0.59); Monocytes % (auto) 7.2 %; Neutrophils % (auto) 80.6 %; Platelet Count 255 K/uL (130-400); RDW Coefficient of Variation 13.4 % (11.5-14.5); RDW Standard Deviation 42.1 fL (36.4-46.3); Red Blood Count 3.47 M/uL (4.70-6.10); White Blood Count 12.15 K/ul (4.8-10.8)
[2023-10-26 07:39] LABS: BUN Creatinine Ratio 24.4 (10-20); Calcium 8.7 mg/dl (8.6-10.3); Creatinine Clr Calc Pharmacy 52.7 ml/min; Est GFR (African American) 58.7 ml/min; Est GFR (Non-African American) 50.6 ml/min; Potassium 4.2 mmol/L (3.5-5.1)
[2023-10-26] MEDS ORDERED: dexAMETHasone 4 MG TAB PO SCH (08:00)
[2023-10-26] MEDS: ASPIRIN 81 MG ECTAB PO SCH (08:21)
[2023-10-26] MEDS: DOCUSATE SODIUM 100 MG CAP PO SCH (08:22)
[2023-10-26] MEDS: buPROPion SR 150 MG TABCR PO SCH (08:22)
[2023-10-26] MEDS ORDERED: Nursing to Pharmacy Communication SCH (08:30)
[2023-10-26] MEDS ORDERED: PANTOprazole 40 MG TAB PO SCH (09:00)
[2023-10-26] MEDS ORDERED: VALSARTAN 80 MG TAB PO SCH (09:00)
[2023-10-26] MEDS ORDERED: ASPIRIN 81 MG ECTAB PO SCH (09:00)
[2023-10-26] MEDS ORDERED: MULTIVITAMIN TAB PO SCH (09:00)
[2023-10-26] MEDS ORDERED: TESTOSTERONE TD SCH (09:00)
[2023-10-26] MEDS ORDERED: NON-FORMULARY MEDICATION (Fenofibrate Micronized 200 mg Capsule) PO SCH (09:00)
[2023-10-26] MEDS ORDERED: METOPROLOL SUCC 25MG EXT REL TAB PO SCH ×2 (09:00→21:00)
--- NOTE | 2023-10-26 13:24 | Orthopedic Progress Note ---
Date of Service October 26, 2023 Assessment & Plan (1) S/P total left hip arthroplasty: Plan: PT/OT Weightbearing as tolerated with walker assistance Total hip precautions reviewed Ice with easy wrap Abduction pillow use x 6 weeks Keep Silverlon dressing in place until 2-week follow-up Pain control with p.o. medication DVT prophylaxis with aspirin and [place] stockings Plan is to discharge home today with in-home physical therapy for the first 2 weeks Follow-up at [facility] orthopedics as previously scheduled With questions contact our clinic at [phone] Admission and Anticipated Discharge Date Admission Date: October 25, 2023 Subjective This 78-year-old male is day 1 status post left total hip arthroplasty. Patient states that he is doing very well. He states that his pain is well-controlled with p.o. pain medication. He states that he has been able to do physical therapy and Occupational Therapy without issue. He is hoping to be discharged home later this morning. Currently denies chest pain, shortness of breath, fever, chills, sweats or numbness or tingling in his left lower extremity. He also denies nausea, vomiting, diarrhea or difficulty voiding. Review of Systems Review of Systems: All systems reviewed & are unremarkable except as noted in Subjective Physical Exam Physical Exam: Left hip: Outer dressing was removed. Silverlon is clean dry and intact and left in place. Patient is able to easily perform an active straight leg raise test and actively dorsi and plantarflex foot without issue. Quad strength is 4 out of 5. Patient tolerates light passive hip flexion near 90 degrees and only experiences some slight tugging pain with light passive internal or external hip rotation. Logroll testing causes no pain. Patient is neurovascularly intact in left lower extremity. Results & Data Vital Signs (Past 12 Hours) Vital Signs Temp Pulse Pulse Resp BP Pulse Ox O2 Del Method 10/26/23 10:36 36.5 C 92 H 71 18 134/65 96 10/26/23 07:05 36.5 C 71 18 134/65 96 Room Air 10/26/23 03:52 36.4 C L 70 18 114/66 95 Room Air Diagnostic Findings Laboratory Results WBC 12.15 K/ul (4.8-10.8) H 10/26/23 06:29 RBC 3.47 M/uL (4.70-6.10) L 10/26/23 06:29 Hgb 10.4 g/dl (14.0-18.0) L 10/26/23 06:29 Hct 30.4 % (42.0-52.0) L 10/26/23 06: MCV 87.6 fL (80.0-100.0) 10/26/23 06: MCH 30.0 pg (25.0-34.0) 10/26/23 06: MCHC 34.2 g/dL (32.0-36.0) 10/26/23 06:29 RDW Std Deviation 42.1 fL (36.4-46.3) 10/26/23 06: RDW Coeff of Mary 13.4 % (11.5-14.5) 10/26/23 06: Plt Count 255 K/uL (130-400) 10/26/23 06: MPV 9.0 fL (9.4-12.4) L 10/26/23 06: Immature Gran % (Auto) 1.2 % 10/26/23 06:29 Neut % (Auto) 80.6 % 10/26/23 06:29 Lymph % (Auto) 10.5 % 10/26/23 06:29 [place] % (Auto) 7.2 % 10/26/23 06:29 Eos % (Auto) 0.2 % 10/26/23 06:29 Baso % (Auto) 0.3 % 10/26/23 06:29 Neut # (Auto) 9.80 K/uL (1.40-6.50) H 10/26/23 06:29 Lymph # (Auto) 1.27 K/uL (1.20-3.40) 10/26/23 06:29 [place] # (Auto) 0.87 K/uL (0.11-0.59) H 10/26/23 06:29 Eos # (Auto) 0.03 K/uL (0.00-0.50) 10/26/23 06:29 Baso # (Auto) 0.04 K/uL (0.00-0.20) 10/26/23 06:29 Immature Gran # (Auto) 0.14 K/uL (0.01-0.20) 10/26/23 06:29 Sodium 136 mmol/L (136-145) 10/26/23 06:29 Potassium 4.2 mmol/L (3.5-5.1) 10/26/23 06:29 Chloride 106 mmol/L (98-107) 10/26/23 06:29 Carbon Dioxide 21 mmol/L (21-32) 10/26/23 06:29 Anion Gap 9 (3-11) 10/26/23 06:29 BUN 33 mg/dl (6-23) H 10/26/23 06:29 Creatinine 1.35 mg/dl (0.6-1.4) 10/26/23 06:29 Est Cr Clr Drug Dosing 52.7 ml/min 10/26/23 06:29 Est GFR ( Amer) 58.7 ml/min 10/26/23 06:29 Est GFR (Non-Af Amer) 50.6 ml/min 10/26/23 06:29 BUN/Creatinine Ratio 24.4 (10-20) H 10/26/23 06:29 Glucose 94 mg/dl (70-99(Fasting)) 10/26/23 06:29 Calcium 8.7 mg/dl (8.6-10.3) 10/26/23 06:29 Impressions Pelvis X-Ray 10/25/23 15:56 SINGLE VIEW PELVIS CLINICAL HISTORY: Postoperative examination. FINDINGS: 2 AP, portable, supine pelvic radiographs are compared to study dated 09/28/2023. The skeletal structures are osteopenic. A bipolar left hip arthroplasty is in near anatomic alignment. At least 2 cortical lag screw transfix the acetabular cup. Mild arthritic change and joint space narrowing is noted in the right hip. There is degenerative sclerosis of the sacroiliac joints. Lumbosacral spondylosis is partially imaged. Subcutaneous gas and soft tissue swelling overlying the left hip are expected postsurgical changes. IMPRESSION: Expected postoperative findings status post left hip arthroplasty. No acute fracture is seen. Electronically signed by: Jd Maciel M.D. 10/25/2023 5:05 PM
--- NOTE | 2023-10-26 13:31 | Discharge Summary ---
Date of Service October 26, 2023 Admission HPI Per Admitting Provider This 78-year-old male presents to clinic today for his preoperative history and physical. Patient is scheduled to have a left total hip arthroplasty performed by Dr. Elliot farris on October 25, 2023. Patient has been having ongoing left hip pain for several years. He also has some mild right hip pain but due to limping his right hip does hurt worse because of the left hip. He has been taking meloxicam for about a year and also uses extra Tylenol intermittently. Patient notices numbness along the lateral hip that does not radiate. He was a chronic smoker recently quit in December 2022. He has had 2 previous cortisone injections into the left hip that did not provide any long-lasting relief. Patient lives with his family. He takes a baby aspirin daily and denies any history of MRSA, diabetes or pulmonary emboli or history of blood clots. Due to his persistent symptoms and persistent pain he wishes to proceed with an elective left total hip arthroplasty Admission Exam Per Admitting Provider General: Well-dressed, well-nourished. Normal mood and affect. Alert and oriented x 3 HEENT: Head: Atraumatic, normocephalic. Eyes: Extraocular movements are intact. Pupils are equal reactive to light with accommodation. Sclera normal. Ears: Ears grossly normal: TMs are clear with normal light reflex nose: Nares are patent bilaterally. Throat: Oropharynx clear mucous membranes moist good dentition uvula midline Neck: Supple, no lymphadenopathy, nontender to palpation, full range of motion Cardiac: Regular rate and rhythm. Normal S1, S2. No murmurs rubs or gallops appreciated Lungs: Clear to auscultation bilaterally no adventitious sounds no accessory muscle use Abdomen: Soft, nontender, nondistended, normoactive bowel sounds in all 4 quadrants Extremities: Left hip: Sensation intact to light touch: Palpable DP and PT pulses. Range of motion of the left hip with flexion to 100 degrees, abduction to 20 degrees, external rotation to 40 degrees and internal rotation to 0 degrees. Logroll test negative. Impingement test positive. Stinchfield test negative. Patient experiences tenderness to palpation over the traverse of the and groin area. Principal Diagnosis Left hip osteoarthritis Discharge Exam Left hip: Outer dressing was removed. Silverlon is clean dry and intact and left in place. Patient is able to easily perform an active straight leg raise test and actively dorsi and plantarflex foot without issue. Quad strength is 4 out of 5. Patient tolerates light passive hip flexion near 90 degrees and only experiences some slight tugging pain with light passive internal or external hip rotation. Logroll testing causes no pain. Patient is neurovascularly intact in left lower extremity. Discharge Data Allergies Allergy/AdvReac Type Severity Reaction Status Date / Time No Known Allergies Allergy Verified 10/25/23 11:41 Procedures Performed Operation Date: 10/25/23 13:20 Actual Procedures p Left Total Hip Arthroplasty, Uncemented(Left) - Teja Watkins MD Hospital Course (1) S/P total left hip arthroplasty: Patient had an uneventful overnight stay following total hip arthroplasty. He states that he has no pain at present. He is anxious to be discharged home soon as possible. He states he is scheduled to begin outpatient physical therapy either Sunday or Sunday. They are supposed to contact him either later today or early tomorrow. PT/OT Weightbearing as tolerated with walker assistance Total hip precautions reviewed Ice with easy wrap Abduction pillow use x 6 weeks Keep Silverlon dressing in place until 2-week follow-up Pain control with p.o. medication DVT prophylaxis with aspirin and AUSTIN stockings Plan is to discharge home today with in-home physical therapy for the first 2 weeks Follow-up at [facility] orthopedics as previously scheduled With questions contact our clinic at [phone] Total Time Total Time Spent Total Time Spent (In Minutes): 20 minutes Discharge Plan Discharge Items Patient Disposition: Home - Home Health Services Reason For Visit: POST SURGICAL CARE Discharge Diagnosis: Left Hip Osteoarthritis Activity: As commented below Lifting: None Bathing: Keep incision dry Bathing Comment: May shower tomorrow Sexual Activity: Wait until after follow-up appointment Exercise/Sports: Wait until after follow-up appointment Driving/Machine Use: No driving until cleared by water conservation specialist Weightbearing: Left weightbearing Weightbearing Comment: as tolerated with walker assistance Non-emergency contact: Surgeon Call non-emergency contact if: you have any medication questions, your pain is not controlled, your temperature is above 101.5, your wound has increased drainage and your wound pain has increased Follow-up/Referrals: Linda Stock [Primary Care Provider] - 11/01/23 2:05 pm (Your follow up appointment with be with Dr. Becky Bowman. Thank you! ) Diet: Regular Addtl Attending Provider Instructions: Post-operative Instructions Dear Patient and Family/Friends, Before you are discharged from the hospital, it is important to know what to expect when you get home after surgery. To that end, we have created this sheet of discharge instructions which covers many commonly asked questions. Make sure you go through this sheet in its entirety with your nurse before you are discharged. Please note that we will go over the specifics of your surgery and recovery when you return for your first post-operative visit. Sincerely, Dr. Watkins Medications 1. Oxycodone 5 mg: Take 1-2 tabs every 4-6 hours as needed for postoperative pain control. This prescription was sent to your pharmacy. 2. Diclofenac sodium 75 mg: Take 1 tab twice daily for the first 30 days postoperatively. This will be sent to your pharmacy with 1 additional refill. 3. Aspirin 81 mg: Take 1 tab twice daily for the first 30 days postoperatively for blood clot prevention. Please purchase this medication. 4. Extra strength Tylenol 500 mg: Take 2 tabs every 6-8 hours as needed for additional pain relief. Please purchase this medication also. Pain Expect to be in a fair amount of pain after surgery. Remember, our goal is not to eliminate your pain, but to make it tolerable. It is a good idea to stay ahead of your pain by taking the medications you were prescribed once you get home. Typically, the pain starts improving 3-7 days after surgery. You should start weaning off the narcotic pain medication (oxycodone, hydrocodone, hydromorphone, morphine) as soon as your pain improves. Please call our office if your pain is not adequately controlled. Ice Ice your operative site at least 5 times a day for 15-30 minutes at a time. Make sure you have a thin cloth between the ice or cooling unit and your skin to prevent ocampo bite. This is especially important if you received a nerve block. Continue icing your operative site for the first 5-7 days after surgery, then as needed. Diet/Nausea/Vomiting Start by drinking clear liquids and eating crackers. If you can tolerate this, then you may resume your normal diet. If you feel nauseated or vomit, take Zofran/ondansetron (if prescribed). Please call our office if you have intractable nausea or vomiting, or, if after hours, you may go to the Emergency Room for help. Constipation Constipation is a common side effect of narcotic pain medication. If you have not had a bowel movement within 2 days after surgery, we recommend purchasing an over the counter laxative such as Milk of Magnesia, Dulcolax, or Miralax from a local pharmacy, and taking it as instructed. Call our clinic if any questions. Nerve block The anesthesia team sometimes places a nerve block to help with post-operative pain control. This results in significant numbness and inability to move the extremity. The nerve block usually wears off in 8-12 hours, but sometimes can last up to 24 hours. Please call our office if you are still unable to move your extremity after 24 hours, unless you received a pain pump to take home. Nerve blocks typically wear off quickly, so start taking pain medication as soon as you start feeling soreness near your surgical site. Weight bearing and Range of Motion. Do not bear any weight through your operative extremity immediately after surgery. If you had upper extremity surgery, do not lift anything with that arm. If you are in a knee brace, keep it locked in place until your follow-up. We will discuss your weight bearing, range of motion, and lifting restrictions in detail at your first post-operative appointment. Continuous Passive Motion (CPM) Machine If you were prescribed a CPM machine, it will start after your first post- operative appointment, at which time we will give you instructions on the range of motion settings and duration of treatment Physical therapy You will be given a prescription for physical therapy or occupational therapy at your first post-operative appointment. Typically, patients start therapy within 1 week of surgery Wound care and showering We will inspect your wound at your first post-operative visit, and may do a dressing change at that time. Most patients will be in a water-proof dressing that is removed 14 days after surgery. It is normal to see some dried blood on the dressing. Do not remove your dressing, paper strips or sutures yourself unless you are given permission. Showering is allowed the day after surgery. Do not scrub or remove any dressings. The wound should not be submerged underwater (i.e. in a bathtub or pool) until 4 weeks after surgery AUSTIN stockings If you were given white stockings, these are to be worn at all times except to shower (on both legs) for the first 2 weeks after surgery. Driving You may not drive while taking narcotic pain medication or while in a cast, splint, sling or brace. You, the patient, need to make the final determination about when you are safe to drive, however, the earliest you may consider driving after surgery is below: Hand/Wrist/Elbow Surgery: 3 days Shoulder Surgery: 2 weeks Hip,/Knee/Ankle Surgery: 4 weeks Fracture repair: 6 weeks Return to Work Your return to work depends on what surgery was done and what type of work you do. Please bring any paperwork your employer needs completed to your first post-operative visit. Also, bring a description of your job duties, as this helps us to understand what risks you may face at work. Travel Avoid long distance travel (greater than 1 hour) in airplanes and cars for the first 6 weeks after surgery. If you must travel, you need to have a Doppler ultrasound done before you travel to rule out a blood clot in your legs. Follow-up You should have a follow-up appointment already scheduled 1-2 days after surgery. If not, please contact our office to make this appointment before you leave the hospital. When to call the office It is normal to have swelling and bruising in the limb that was operated on. This will improve with time. It is also normal to have fevers for the first 2 days after surgery. Reasons you should call your doctor include: Uncontrolled pain; Nausea, vomiting, or constipation that does not improve with medication; Fevers over 101.5, chills, sweats; Drainage or bleeding from the wound; Foul odor; Spreading areas of redness; Any other concerns Pending Studies at Discharge: No Stand-Alone Forms: My [facility] Medications and DC Order Prescriptions: New oxycodone 5 mg Tablet 5 - 10 mg PO Q4H MDD Ongoing treatment PRN (Reason: Postoperative pain control) Qty: 28 0RF diclofenac sodium 75 mg tablet,delayed release (DR/EC) 75 mg PO BID 30 Days Qty: 60 0RF Continued testosterone 50 mg/5 gram (1 %) gel 1 tube transdermal QAM Qty: 150 3RF Rx Instructions: Put 1 gel every morning after the shower and rub it till its evaporated. famotidine [Acid Vice President (famotidine)] 20 mg tablet 20 mg PO HS Qty: 30 10RF montelukast 10 mg tablet 10 mg PO HS Qty: 30 2RF valsartan 160 mg tablet 160 mg PO QAM esomeprazole magnesium [Nexium] 20 mg capsule,delayed release(DR/EC) 40 mg PO QAM bupropion HCl [Wellbutrin SR] 150 mg tablet sustained-release 12 hr 150 mg PO BID fexofenadine [Gissell Allergy] 180 mg tablet 180 mg PO HS fenofibrate micronized 200 mg Capsule 200 mg PO QAM simvastatin 40 mg Tablet 40 mg PO HS melatonin 2.5 mg/10 mL Liquid 5 mg PO HS PRN (Reason: Sleep) Patient Comments: *per pt is a spray* Rx Instructions: PER PT "USUALLY EVERY NIGHT". metoprolol succinate 25 mg tablet extended release 24 hr 25 mg PO QAM albuterol sulfate 90 mcg/actuation HFA aerosol inhaler 2 puff inhalation Q6H PRN (Reason: Shortness Of Breath Or Wheezing) Qty: 1 0RF alfuzosin 10 mg tablet extended release 24 hr 10 mg PO HS Rx Instructions: administer after the same meal each day tadalafil 20 mg Tablet 20 mg PO DAILY PRN (Reason: Sexual Activity) Rx Instructions: administer approximately 30min before sexual activity; do not use more than 1 dose per 24hrs acetaminophen 650 mg Tablet Extended Release 1,000 mg PO TID Qty: 1 0RF Changed aspirin 81 mg Tablet,Delayed Release (Dr/Ec) 81 mg PO BID 30 Days Qty: 60 0RF Discontinued meloxicam 7.5 mg tablet 15 mg PO QAM Admission Data Admit Date/Time: 10/25/23 15:56 Attending Provider: Teja Watkins Admit Provider: Teja Watkins Primary Care Provider: Linda Stock Other Providers: [facility],Home Healthcare; [facility],Referral Center Other Interventions: Discharge Summary Assessment (RN) Last Done: 10/26/23 10:36
[2023-10-27] MEDS ORDERED: MELOXICAM 7.5 MG TAB PO SCH (09:00)
== END 2023-10-26 11:40 | disposition home health service (06) ==
LOC: 3N 11:03 → ASU 11:03